=== PATIENT | female | born 1950 | race American Indian/Alaskan Native ===

== ENCOUNTER 2018-03-21 10:14 | Outpatient (CLI) | payer MEDICARE ==
--- NOTE | 2018-03-22 10:07 | Mammography Report ---
BILATERAL DIGITAL DIAGNOSTIC MAMMOGRAM with CAD: 03/21/18 10:14:00 CLINICAL: Recently diagnosed left breast cancer. She had an ultrasound-guided needle biopsy of the left breast at 3 o'clock 10 cm from the nipple on 12/09/17. 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 COMPARISON:No comparison imaging. FINDINGS: The breasts are heterogeneously dense, which may obscure small masses. A left outer biopsy clip correlates with the known cancer. No mass or architectural distortion. Scattered bilateral benign calcifications and bilateral benign vascular calcifications. IMPRESSION: Left breast cancer which is mammographically occult. BI-RADS CATEGORY: 6--Known Cancer ACR BI-RADS MAMMOGRAPHIC CODES: 0 = Needs additional imaging evaluation; 1 = Negative; 2 = Benign; 3 = Probably benign; 4 = Suspicious; 5 = Malignant; 6 = Known biopsy-proven malignancy COMMENT: 1. Dense breast tissue, i.e., adenosis, fibrocystic changes, etc., may obscure an underlying neoplasm. 2. Approximately 10% of cancers are not detected with mammography. 3. A negative mammography report should not delay biopsy if a clinically suspicious mass is present. COMMENT: Patient follow-up letters are generated by our [facility] application.
== END 2018-03-21 10:15 | disposition home or self-care (01) ==
LOC: SPVWC 10:14
PROVIDERS: ATTEND Surgery
DX: C50.412 Malignant neoplasm of upper-outer quadrant of left female breast (principal)
CPT/HCPCS: 77066

== ENCOUNTER 2018-03-28 10:31 | Outpatient (CLI) | payer MEDICARE ==
--- NOTE | 2018-03-28 12:40 | Ultrasound Report ---
LEFT BREAST ULTRASOUND: 03/28/18 10:31:00 CLINICAL: Newly diagnosed left breast cancer. She had an ultrasound guided needle biopsy of the left breast at 3 o'clock 10 cm from the nipple on 12/09/17. Pathology revealed ductal carcinoma in situ, low to intermediate grade. COMPARISON: 03/21/18 mammogram FINDINGS: Ultrasound of the left breast(including all four quadrants and the retroareolar area) was performed and demonstrated a hypoechoic solid slightly irregular mass at 3 o'clock 10 cm from the nipple. It measures 8 x 4 x 6 mm and correlates with the biopsy site. A clip is identified at the margin. No other mass or cyst. Ultrasound of the left axilla demonstrated no suspicious lymph nodes. IMPRESSION: An 8mm mass at the site of the known cancer at 3 o'clock 10 cm from the nipple which may be a post biopsy hematoma. No other mass or suspicious finding of the left breast. BI-RADS 6 -- Known Cancer This
== END 2018-03-28 10:32 | disposition home or self-care (01) ==
LOC: SPVWC 10:31
PROVIDERS: ATTEND Surgery
DX: C50.412 Malignant neoplasm of upper-outer quadrant of left female breast (principal)

== ENCOUNTER 2018-08-30 05:58 | Observation (INO) | payer MEDICARE ==
[~2018-08-30 05:58] MED LIST: ANCEF/STERILE WATER 2 GM/20 ML 2 GM/20 ML SYRINGE IV NR; HEPARIN SUB-Q NR
[2018-08-30] MEDS: LACTATED RINGERS 1,000 ML IV SCH ×2 (06:49→19:50)
[2018-08-30] MEDS ORDERED: METHYLENE BLUE ONE (07:18)
[2018-08-30] MEDS ORDERED: NACL P/F VIAL (10 ML) 10 ML ONE (07:18)
[2018-08-30] MEDS ORDERED: BACITRACIN ONE (07:19)
[2018-08-30] MEDS ORDERED: GENTAMICIN ONE (07:19)
[2018-08-30] MEDS ORDERED: ANCEF ONE (07:20)
[2018-08-30 07:21] LABS: Basophils % (Auto) 0.8 % (0.0-1.8); Eosinophils # (Auto) 0.2 K/mm3 (0.0-0.4); Eosinophils % (Auto) 4.6 % (0.0-4.3); Hematocrit 31.5 % (30.3-42.9); Hemoglobin 10.5 gm/dl (10.1-14.3); Lymphocytes # (Auto) 1.3 K/mm3 (1.2-5.4); Mean Corpuscular HGB Conc 33 % (30-34); Mean Corpuscular Volume 92 fl (79-97); Monocytes # (Auto) 0.5 K/mm3 (0.0-0.8); Monocytes % (Auto) 12.4 % (0.0-7.3); Platelet Count 184 K/mm3 (140-440); Red Blood Count 3.41 M/mm3 (3.65-5.03); Red Cell Distribution Width 15.7 % (13.2-15.2)
--- NOTE | 2018-08-30 07:36 | Anesthesia Consultation ---
Anesthesia Consult and Med Hx Date of service: 08/30/18 - Airway Anesthetic Teeth Evaluation: Good ROM Head & Neck: Adequate Mental/Hyoid Distance: Adequate Mallampati Class: Class IV Intubation Access Assessment: Possibly Difficult - Pre-Operative Health Status ASA Pre-Surgery Classification: ASA3 Proposed Anesthetic Plan: General Nerve Block: PEC - Pulmonary Hx Smoking: No Hx Asthma: No Hx Respiratory Symptoms: Yes (chronic BRISCOE; pulm HTN) Hx Sleep Apnea: No - Cardiovascular System Hx Hypertension: Yes (did not take antihypertensives today) Hx Coronary Artery Disease: Yes (NST 05/2018) Hx Heart Attack/AMI: Yes (2013; ischemic cardiomyopathy EF 35%) Hx Percutaneous Transluminal Coronary Angioplasty (PTCA): Yes (x2 2013) Hx Cardia Arrhythmia: Yes (p-Afib mentioned in previous cardiac records; patient denies) Hx Pacemaker: No Hx Valvular Heart Disease: Yes (mild /AR, moderate to severe MR/TR) Hx Heart Murmur: Yes - Central Nervous System Hx Seizures: No CVA: No Hx Psychiatric Problems: No - Gastrointestinal Hx Gastroesophageal Reflux Disease: Yes (well controlled) - Endocrine Hx Renal Disease: Yes (CKD stage 4) Hx Liver Disease: No Hx Insulin Dependent Diabetes: No Hx Non-Insulin Dependent Diabetes: No Hx Thyroid Disease: No - Hematic Hx Anemia: Yes - Other Systems Hx Alcohol Use: Yes (OCCA) Hx Substance Use: No Hx Cancer: Yes (Breast Ca) Hx Obesity: No
[2018-08-30] MEDS ORDERED: SUBLIMAZE IV PRN (07:37)
[2018-08-30] MEDS ORDERED: SUBLIMAZE IV NR (07:37)
[2018-08-30] MEDS ORDERED: ZOFRAN IV PRN ×2 (07:37→13:23)
--- NOTE | 2018-08-30 07:37 | Anesthesia Day of Surgery ---
Anesthesia Day of Surgery - Day of Surgery Patient Examined: Yes Patient H&P Reviewed: Yes Patient is NPO: Yes Beta Blockers: Yes Cardiac Clearance: Yes
[2018-08-30 07:40] LABS: Albumin 4.1 g/dL (3.9-5); Calcium 9.6 mg/dL (8.4-10.2)
[2018-08-30] MEDS ORDERED: BETAPACE PO NR (07:40)
[2018-08-30] MEDS ORDERED: PROTONIX PO NR (07:41)
[2018-08-30] MEDS ORDERED: COREG PO NR (07:43)
[2018-08-30] MEDS ORDERED: APRESOLINE PO NR (07:44)
[2018-08-30] MEDS ORDERED: IMDUR PO NR (07:45)
[2018-08-30] MEDS ORDERED: NACL 0.9% 1000 ML 1,000 ML ONE (07:47)
[2018-08-30] MEDS ORDERED: ROBINUL ONE (08:00)
[2018-08-30] MEDS ORDERED: VERSED IV NR (08:00)
[2018-08-30] MEDS ORDERED: BLOXIVERZ ONE (08:00)
[2018-08-30] MEDS ORDERED: NEO SYNEPHRINE/NS Syringe(OR USE) IV ONE (08:00)
[2018-08-30] MEDS ORDERED: QUELICIN ONE (08:00)
[2018-08-30] MEDS ORDERED: XYLOCAINE 1% 20 mL ONE ×2 (08:11→08:17)
[2018-08-30] MEDS ORDERED: MARCAINE 0.25% INFILTRATI ONE (08:11)
[2018-08-30] MEDS ORDERED: MARCAINE-EPI 0.5%-1:200,000 INFILTRATI ONE (08:16)
[2018-08-30] MEDS ORDERED: ZOFRAN ONE (08:18)
[2018-08-30] MEDS ORDERED: DECADRON ONE (08:18)
[2018-08-30] MEDS ORDERED: DILAUDID ONE (08:18)
[2018-08-30] MEDS ORDERED: ZEMURON IV ONE (08:18)
[2018-08-30] MEDS ORDERED: TORADOL ONE (08:18)
[2018-08-30] MEDS ORDERED: XYLOCAINE MPF 2% ONE (08:18)
[2018-08-30] MEDS ORDERED: DIPRIVAN 10 MG/ML IV ONE (08:18)
[2018-08-30] MEDS ORDERED: XYLOCAINE TOPICAL 2% 5ML ONE (08:36)
[2018-08-30] MEDS ORDERED: ANCEF IR ONE (08:51)
[2018-08-30] MEDS ORDERED: METHYLENE BLUE IRRIGATION ONE (08:51)
[2018-08-30] MEDS ORDERED: NACL 0.9% 1000 ML IR ONE (08:51)
[2018-08-30] MEDS ORDERED: GENTAMICIN IV ONE (08:51)
[2018-08-30] MEDS ORDERED: WATER FOR IRRIG STERILE IR ONE ×2 (08:51)
[2018-08-30] MEDS ORDERED: BACITRACIN IR ONE (08:51)
[2018-08-30] MEDS ORDERED: NACL 0.9% IR ONE (08:51)
[2018-08-30 11:16] LABS: Hematocrit 28.8 % (30.3-42.9)
--- NOTE | 2018-08-30 11:27 | Operative Report ---
Operative Report Operative Report: Operative Report: Date of Service: August 30, 2018 Preoperative diagnosis: Left breast cancer of the lower outer quadrant Postoperative diagnosis: Same Procedure: Left total mastectomy Surgeon: Aminah Henao M.D. Anesthesia: Gen. Findings: Left seroma cavity and scar from recent surgery noted of the lower outer quadrant Complications: None Drains: per Plastic Surgery Estimated blood loss: 400 cc Disposition: Plastic Surgery for placement of tissue guitar technician Indications for operative procedure: This is a 68-year-old lady with newly diagnosed left breast cancer ILCA of the lower outer quadrant, [id number] ER/OK positive. In April 2018 patient underwent a left partial mastectomy with sentinel node biopsy. Final pathology with findings of sentinel lymph nodes negative for malignancy, left partial mastectomy ILCA [id number] ER/OK positive and extensive DCIS with positive margins to DCIS. Recommendations were to proceed with a margin revision that was performed in July 2018 with final pathology of persistent positive margins. Recommendations are to proceed with a left total mastectomy given additional disease present from margin revision with positive margins for extensive DCIS. Patient agrees and wished to proceed with immediate plastic surgery with tissue guitar technician placement. Patient was given instructions to stop taking aspirin 7 days prior to surgery and her last dosage was yesterday. I explained the increase of bleeding during surgery and patient understood. Procedure in detail: Anesthesia placed left pectoral muscle block prior to going to the operating room. The patient was taken to the operating room and was pl aced supine. Gen. anesthesia was administered. Bilateral breasts and axillas were prepped and draped in the normal sterile operative fashion. Timeout was performed. Typical mastectomy incision marking was made, left mastectomy including prior incision located laterally. Attention was taken towards the left breast. A skin incision was made with a 10 blade knife and dissection taken down to the subcutaneous tissues. First began raising of the superior flap to the level of the clavicle superiorly and posteriorly to the pectoralis muscle. Followed by raising of the medial flap to the level of the sternum and posteriorly to the pectoralis muscle. Followed by raising of the lateral flap to the level of the latissimus dorsi muscle and taken down posteriorly. Then proceeded with raising of the inferior flap to the level of the inframammary fold taken posterior to the pectoralis muscle. Seroma cavity and scar tissue was noted from recent surgery of the lower outer quadrant. The mastectomy/breast was removed from the pectoralis muscle without incident. Significant bleeding was noted during surgery that was controlled using Bovie Cautery, patient remained hemodynmically stable and H/H obtained. The specimen was appropriately marked and sent to pathology. Hemostasis was obtained using Bovie Cautery. The chest wall was irrigated and suctioned. Hemostasis was noted. Plastic surgery then proceeded with placement of tissue guitar technician. Patient tolerated surgery well.
[2018-08-30] MEDS ORDERED: TYLENOL PO PRN (13:23)
[2018-08-30] MEDS ORDERED: SODIUM CHLORIDE FLUSH SYRINGE 10 ML IV PRN (13:23)
[2018-08-30] MEDS ORDERED: PERCOCET 5/325 PO PRN (13:23)
[2018-08-30] MEDS ORDERED: BENADRYL PO PRN (13:23)
[2018-08-30] MEDS ORDERED: REGLAN IV PRN (13:23)
[2018-08-30] MEDS ORDERED: DILAUDID PO PRN (13:23)
--- NOTE | 2018-08-30 13:23 | Operative Report ---
Operative Report Operative Report: Plastic Surgery Operative Note Surgeon: Lidia Marx MD Preoperative Diagnosis: Acquired absence of the left breast; Malignant neoplasm of the left breast Postoperative Diagnosis: Same Procedure: Left breast reconstruction with tissue fancy needleworker placement and FlexHD acellular dermal matrix. Commodity Director: LIO Vaughn Anesthesia: General EBL: 100cc Indications: This patient is a 68 year old AAF who is scheduled for a left mastectomy and desires reconstruction. After review of her options we d etermined that a tissue fancy needleworker placement with FlexHD dermal scaffold was her best option. We discussed her options including autologous tissue transfer and she was interested in the least complex reconstructive route possible. So we planned for tissue fancy needleworker placement with the use of acellular dermal matrix. The benefits as well as the risks of the procedure were discussed with the patient, including but not limited to infection, bleeding, hematoma, seroma, mastectomy flap necrosis, wound dehiscence, implant rupture, need for further surgery including planned stages and additional reconstruction. The patient understands and accepts these risks and desires to proceed with surgery. Procedure: After review of pertinent history and physical exam findings the patient was brought into the operating room and placed supine on the OR table. After induction of adequate general anesthesia the entire chest was prepped and draped in the usual sterile surgical fashion. To begin, Dr. Aminah Henao performed the left mastectomy and this procedure is dictated under a separate operative note. When this was completed, the breast reconstruction was started on the left breast. Using electrocautery we dissected a submuscular pocket behind pectoralis muscle to accommodate the tissue fancy needleworker. The pocket was thoroughly irrigated with triple antibiotic solution and we began creating the inframammary border using Flex HD perforated contoured, a total size of [id number], SN [id number]. The inferior aspect of the Flex HD was secured to the chest fascia using 2-0 PDS suture. This was followed by placement of the tissue fancy needleworker, [place] Siltex 500cc (SN [id number]), in the submuscular pocket. Following this inferior border of the pectoralis fascia was secured to the superior border of the FlexHD also using 2-0 PDS suture. A 19 Lao drain was placed and secured using 2-0 Nylon suture. We then began a 3-layered closure using 3-0 Monoderm Quill [id number] suture. This was followed by Dermabond glue and then Telfa with tegaderm followed by bra binder. Patient was then awakened from general anesthesia and transferred to the recovery room instable condition.
[2018-08-30] MEDS ORDERED: ROBAXIN IV STA (13:32)
[2018-08-30] MEDS ORDERED: LACTATED RINGERS 1,000 ML IV SCH (14:00)
[2018-08-30] MEDS ORDERED: NACL 0.9% 500 ML 500 ML IV NR (14:02)
[2018-08-30 14:48] LABS: Hematocrit 27.3 % (30.3-42.9); Hemoglobin 9.1 gm/dl (10.1-14.3); Mean Corpuscular HGB Conc 33 % (30-34); Mean Corpuscular Volume 94 fl (79-97); Platelet Count 167 K/mm3 (140-440); Red Blood Count 2.92 M/mm3 (3.65-5.03); Red Cell Distribution Width 15.8 % (13.2-15.2)
[2018-08-30] MEDS: ROBAXIN 1,000 MG in NACL 0.9% 250ML 250 ML IV SCH ×2 (15:15→23:24)
--- NOTE | 2018-08-30 16:32 | Post Anesthesia Evaluation ---
- Post Anesthesia Evaluation Patient Participated: Yes Airway Patent: Yes Stable Respiratory Function: Yes Nausea/Vomiting: No Temp > 96.8F: Yes Pain Manageable: Yes Adequeate Hydration: Yes Anesthesia Complications: No Block Receding Appropriately: Yes Patient on Ventilator: No
[2018-08-30] MEDS ORDERED: BENADRYL ONE (16:52)
[2018-08-30] MEDS ORDERED: BENADRYL IV ONE (16:55)
[2018-08-30] MEDS: MORPHINE IV PRN ×2 (18:30→23:21)
[2018-08-30] MEDS: ANCEF/NS 1 GM/50 ML 1 GM/50 ML BAG IV SCH (19:00)
[2018-08-30] MEDS: COLACE PO SCH (23:22)
[2018-08-31] MEDS: ANCEF/NS 1 GM/50 ML 1 GM/50 ML BAG IV SCH ×3 (03:26→15:35)
[2018-08-31] MEDS: MORPHINE IV PRN ×2 (03:27→08:14)
[2018-08-31 06:18] LABS: Hematocrit 21.5 % (30.3-42.9); Mean Corpuscular HGB Conc 33 % (30-34); Mean Corpuscular Volume 94 fl (79-97); Platelet Count 145 K/mm3 (140-440); Red Blood Count 2.28 M/mm3 (3.65-5.03); Red Cell Distribution Width 15.8 % (13.2-15.2)
[2018-08-31] MEDS: ROBAXIN 1,000 MG in NACL 0.9% 250ML 250 ML IV SCH ×3 (08:07→23:23)
[2018-08-31] MEDS ORDERED: NACL 0.9% 500 ML 500 ML IV NR (09:30)
[2018-08-31] MEDS ORDERED: DILAUDID IV STA (09:36)
[2018-08-31] MEDS ORDERED: DILAUDID IM PRN (09:38)
--- NOTE | 2018-08-31 09:46 | Progress Note ---
Subjective Date of service: 08/31/18 Interval history: Plastic Surgery Progress Note Patient admitted to the floor last night, reports poorly controlled pain and no appetite, but denies nausea or vomiting. No cp, sob, dizziness. She has been OOB to the bathroom with spontaneous voiding. Exam AFVSS MADI drain functional, serosanguinous output noted overnight and at present 25cc in bulb (emptied) Mastectomy flaps viable, dressings clean and dry/intact. Soft tissue edema superiorly and laterally without ecchymosis, nontender. A/P: POD #1 s/p left mastectomy with immediate tissue operations/dispatch/flex HD reconstruction . Post operatively aspirin effect is still evident. Hgb/Hct 7.1/21 but patient asymptomatic. MADI output slowing down but still active. --Order stat transfusion of PRBC x 1 unit, post transfusion CBC --Monitor MADI outputs and vitals for sx's of anemia --Change diet to Renal diet --Home medications --Adjust pain meds to Dilaudid IV stat and prn severe pain, d/c Morphine IV, continue to try to transition to PO's as tolerated. --Continue Robaxin IV. No role for Toradol in light of incr. bleeding risk --OOB to chair, Incentive spirometry --Will f/u this afternoon Objective - Constitutional Vitals: Vital Signs - 12hr 08/30/18 08/31/18 08/31/18 23:21 01:52 03:27 Temperature 98.2 F Pulse Rate 65 Respiratory 18 16 18 Rate Blood Pressure 115/58 Blood Pressure [Left] O2 Sat by Pulse 95 Oximetry 08/31/18 08/31/18 06:47 07:53 Temperature 97.6 F 97.3 F L Pulse Rate 71 75 Respiratory 16 18 Rate Blood Pressure 129/53 Blood Pressure 140/68 [Left] O2 Sat by Pulse 97 96 Oximetry - Labs CBC & Chem 7: 08/31/18 05:43 08/30/18 07:00 Labs: Abnormal lab results 08/30/18 08/30/18 08/30/18 Range/Units 10:55 10:55 14:28 WBC 3.7 L (4.5-11.0) K/mm3 RBC 2.92 L (3.65-5.03) M/mm3 Hgb 9.0 L 9.1 L (10.1-14.3) gm/dl Hct 28.8 L 27.3 L (30.3-42.9) % RDW 15.8 H (13.2-15.2) % Crossmatch See Detail 08/30/18 08/31/18 Range/Units 14:58 05:43 WBC (4.5-11.0) K/mm3 RBC 2.28 L (3.65-5.03) M/mm3 Hgb 7.0 L (10.1-14.3) gm/dl Hct 21.5 L (30.3-42.9) % RDW 15.8 H (13.2-15.2) % Crossmatch See Detail Medications & Allergies - Medications Allergies/Adverse Reactions: Allergies Lzctgev-Vjq-Cvi Reductase Inhibitor Allergy (Verified 08/30/18 07:42) Unknown evolocumab [From Repatha Pushtronex] Adverse Reaction (Verified 08/30/18 07:42) BAD BACK PAIN Home Medications: Home Medications Medication Instructions Recorded Confirmed Last Taken Type Aspirin [Adult Aspirin Regimen] 81 mg PO DAILY 04/12/18 08/23/18 08/29/18 History Benazepril HCl 40 mg PO DAILY 04/12/18 08/23/18 08/29/18 History Carvedilol [Coreg] 6.25 mg PO BID 04/12/18 08/30/18 08/29/18 19:00 History Levocetirizine Dihydrochloride 5 mg PO DAILY 04/12/18 08/23/18 08/29/18 History Omeprazole 40 mg PO DAILY PRN 04/12/18 08/23/18 08/29/18 History Sotalol [Betapace] 40 mg PO BID 04/12/18 08/30/18 08/29/18 19:00 History Ergocalciferol [Vitamin D2] 1 cap PO QWEEK 07/11/18 08/23/18 08/29/18 History Fluticasone [Flonase] 1 spray NS QDAY 07/11/18 08/23/18 08/29/18 History Furosemide [Lasix] 20 mg PO Q48H 07/11/18 08/23/18 08/29/18 History Sodium Bicarbonate 2 tab PO BID 07/11/18 08/23/18 08/29/18 History HYDROcodone/APAP 5-325 [[place] 1 each PO Q6HR PRN #20 tablet 07/12/18 08/23/18 08/29/18 Rx 5/325] ISOSORBIDE MONOnitrate [Imdur ER] 30 mg PO DAILY 08/23/18 08/23/18 08/29/18 History hydrALAZINE [Apresoline] 25 mg PO BID 08/23/18 08/23/18 08/29/18 History Active Medications: Generic Name Dose Route Start Last Admin Trade Name Freq PRN Reason Stop Dose Admin Acetaminophen 650 mg 08/30/18 13:23 Tylenol PO Q6H PRN Pain MILD(1-3)/Fever >100.5/HOU Diphenhydramine HCl 25 mg 08/30/18 13:23 Benadryl PO Q8H PRN Itching Docusate Sodium 100 mg 08/30/18 22:00 08/30/18 23:22 Colace PO 100 mg BID RENE Administration Ephedrine Sulfate 10 mg 08/30/18 14:10 08/30/18 14:03 Ephedrine Sulfate IV 10 mg Q5M PRN Administration Blood Pressure Hydromorphone HCl 2 mg 08/30/18 13:23 Dilaudid PO Q6H PRN Pain , Severe (7-10) Hydromorphone HCl 0.5 mg 08/31/18 09:36 Dilaudid IV 08/31/18 09:37 Q3H STA Lactated Ringer's 1,000 mls @ 100 mls/hr 08/30/18 07:00 08/30/18 19:50 Lactated Ringers IV 100 mls/hr DIRECT RENE Administration Lactated Ringer's 1,000 mls @ 125 mls/hr 08/30/18 14:00 Lactated Ringers IV DIRECT RENE Cefazolin Sodium 1 gm in 50 mls @ 100 mls/hr 08/30/18 15:00 08/31/18 08:08 Ancef/Ns 1 Gm/50 Ml IV Not Given Q8HR [facility] Protocol Methocarbamol 1,000 mg/ Sodium 260 mls @ 250 mls/hr 08/30/18 14:00 08/31/18 08:07 Chloride IV Not Given Q8HR [facility] Sodium Chloride 500 mls @ 0 mls/hr 08/31/18 09:30 Nacl 0.9% 500 Ml IV 08/31/18 17:00 ONCE NR As Directed Metoclopramide HCl 10 mg 08/30/18 13:23 Reglan IV Q6H PRN Nausea And Vomiting and NPO Morphine Sulfate 2 mg 08/30/18 13:30 08/31/18 08:14 Morphine IV 2 mg Q3H PRN Administration Pain, Moderate (4-6) Ondansetron HCl 4 mg 08/30/18 07:37 Zofran IV ONCE PRN Nausea And Vomiting Ondansetron HCl 4 mg 08/30/18 13:23 Zofran IV Q8H PRN N/V unrelieved by Hermilolan Oxycodone/Acetaminophen 1 tab 08/30/18 13:23 Percocet 5/325 PO Q6H PRN Pain, Moderate (4-6) Sodium Chloride 10 ml 08/30/18 13:23 Sodium Chloride Flush Syringe 10 Ml IV PRN PRN LINE FLUSH
[2018-08-31] MEDS: COLACE PO SCH ×2 (10:06→22:52)
[2018-08-31 11:22] LABS: Hematocrit 20.6 % (30.3-42.9); Hemoglobin 6.8 gm/dl (10.1-14.3)
[2018-08-31] MEDS: DILAUDID IV PRN ×2 (13:52→18:45)
--- NOTE | 2018-08-31 17:44 | Progress Note ---
Subjective Date of service: 08/31/18 Interval history: Plastic Surgery Progress Patient feeling better as compared to this morning, pain is under better control. She ate more as well and is sitting up in bed. Denies f /c/cp/sob/dizziness. Transfusion given earlier 1 unit PRBC Exam: Drain intact, serosanguinous output slowing from overnight Left chest mastectomy flaps viable, dressings c/d/i, no hematoma or seroma palpable. Plan: Follow up with post transfusion CBC, transfuse additional units if warranted. OOB to chair with assistance. Objective - Constitutional Vitals: Vital Signs - 12hr 08/31/18 08/31/18 08/31/18 06:47 07:53 12:05 Temperature 97.6 F 97.3 F L 97.5 F L Pulse Rate 71 75 80 Respiratory 16 18 20 Rate Blood Pressure 129/53 124/74 Blood Pressure 140/68 [Left] O2 Sat by Pulse 97 96 99 Oximetry 08/31/18 08/31/18 08/31/18 12:13 12:28 15:32 Temperature 97.5 F L 97.5 F L 97.1 F L Pulse Rate 84 80 79 Respiratory 19 19 20 Rate Blood Pressure 136/65 140/64 127/63 Blood Pressure [Left] O2 Sat by Pulse 100 100 100 Oximetry - Labs CBC & Chem 7: 08/31/18 10:52 08/30/18 07:00 Labs: Abnormal lab results 08/30/18 08/31/18 08/31/18 Range/Units 14:58 05:43 10:52 RBC 2.28 L (3.65-5.03) M/mm3 Hgb 7.0 L 6.8 L (10.1-14.3) gm/dl Hct 21.5 L 20.6 L (30.3-42.9) % RDW 15.8 H (13.2-15.2) % Crossmatch See Detail Medications & Allergies - Medications Allergies/Adverse Reactions: Allergies Krrwykm-Hnx-Vlu Reductase Inhibitor Allergy (Verified 08/30/18 07:42) Unknown evolocumab [From Repatha Pushtronex] Adverse Reaction (Verified 08/30/18 07:42) BAD BACK PAIN Home Medications: Home Medications Medication Instructions Recorded Confirmed Last Taken Type Aspirin [Adult Aspirin Regimen] 81 mg PO DAILY 04/12/18 08/23/18 08/29/18 History Benazepril HCl 40 mg PO DAILY 04/12/18 08/23/18 08/29/18 History Carvedilol [Coreg] 6.25 mg PO BID 04/12/18 08/30/18 08/29/18 19:00 History Levocetirizine Dihydrochloride 5 mg PO DAILY 04/12/18 08/23/18 08/29/18 History Omeprazole 40 mg PO DAILY PRN 04/12/18 08/23/18 08/29/18 History Sotalol [Betapace] 40 mg PO BID 04/12/18 08/30/18 08/29/18 19:00 History Ergocalciferol [Vitamin D2] 1 cap PO QWEEK 07/11/18 08/23/18 08/29/18 History Fluticasone [Flonase] 1 spray NS QDAY 07/11/18 08/23/18 08/29/18 History Furosemide [Lasix] 20 mg PO Q48H 07/11/18 08/23/18 08/29/18 History Sodium Bicarbonate 2 tab PO BID 07/11/18 08/23/18 08/29/18 History HYDROcodone/APAP 5-325 [[place] 1 each PO Q6HR PRN #20 tablet 07/12/18 08/23/18 08/29/18 Rx 5/325] ISOSORBIDE MONOnitrate [Imdur ER] 30 mg PO DAILY 08/23/18 08/23/18 08/29/18 History hydrALAZINE [Apresoline] 25 mg PO BID 08/23/18 08/23/18 08/29/18 History Active Medications: Generic Name Dose Route Start Last Admin Trade Name Freq PRN Reason Stop Dose Admin Acetaminophen 650 mg 08/30/18 13:23 Tylenol PO Q6H PRN Pain MILD(1-3)/Fever >100.5/HOU Diphenhydramine HCl 25 mg 08/30/18 13:23 Benadryl PO Q8H PRN Itching Docusate Sodium 100 mg 08/30/18 22:00 08/31/18 10:06 Colace PO 100 mg BID RENE Administration Ephedrine Sulfate 10 mg 08/30/18 14:10 08/30/18 14:03 Ephedrine Sulfate IV 10 mg Q5M PRN Administration Blood Pressure Hydromorphone HCl 2 mg 08/30/18 13:23 Dilaudid PO Q6H PRN Pain , Severe (7-10) Hydromorphone HCl 0.5 mg 08/31/18 10:00 08/31/18 13:52 Dilaudid IV 0.5 mg Q4H PRN Administration Pain , Severe (7-10) Lactated Ringer's 1,000 mls @ 125 mls/hr 08/30/18 14:00 Lactated Ringers IV DIRECT RENE Cefazolin Sodium 1 gm in 50 mls @ 100 mls/hr 08/30/18 15:00 08/31/18 15:35 Ancef/Ns 1 Gm/50 Ml IV 100 mls/hr Q8HR RENE Administration Protocol Methocarbamol 1,000 mg/ Sodium 260 mls @ 250 mls/hr 08/30/18 14:00 08/31/18 15:34 Chloride IV 250 mls/hr Q8HR RENE Administration Metoclopramide HCl 10 mg 08/30/18 13:23 Reglan IV Q6H PRN Nausea And Vomiting and NPO Morphine Sulfate 2 mg 08/30/18 13:30 08/31/18 08:14 Morphine IV 2 mg Q3H PRN Administration Pain, Moderate (4-6) Ondansetron HCl 4 mg 08/30/18 13:23 Zofran IV Q8H PRN N/V unrelieved by Reglan Oxycodone/Acetaminophen 1 tab 08/30/18 13:23 Percocet 5/325 PO Q6H PRN Pain, Moderate (4-6) Sodium Chloride 10 ml 08/30/18 13:23 Sodium Chloride Flush Syringe 10 Ml IV PRN PRN LINE FLUSH
[2018-08-31 18:47] LABS: Hematocrit 26.4 % (30.3-42.9); Hemoglobin 8.6 gm/dl (10.1-14.3)
[2018-09-01] MEDS: ANCEF/NS 1 GM/50 ML 1 GM/50 ML BAG IV SCH ×2 (00:31→09:35)
--- NOTE | 2018-09-01 06:00 | Progress Note ---
Assessment and Plan This is a 68 year old lady POD#2 left total mastectomy with immediate tissue chemical librarian placement. 1. Patient transfused 1 u PRBCs yesterday with appropriate response to .08/30 adn 8.03/30 this morning. Patient hemodynamically stable. Patient understands no further aspirin until instructed, patient did not stop aspirin prior to surgery. Spoke with her cathead worker Dr. Beckman who recommends iron tablets that have already been prescribed. 2. Left chest incision healing. 3. MADI drain education. 4. OOB to hallway today. 5. D/C planning for later today. Subjective Date of service: 09/01/18 Principal diagnosis: Left breast cancer Interval history: POD#2 left total mastectomy with tissue chemical librarian placement. Transfused 1 unit of PRBCs yesterday with appropriate response. Objective - Constitutional Vitals: Vital Signs - 12hr 08/31/18 08/31/18 09/01/18 20:10 20:46 00:04 Temperature 97.9 F 98.2 F Pulse Rate 90 88 Respiratory 20 20 Rate Blood Pressure 133/69 144/73 O2 Sat by Pulse 100 100 100 Oximetry 09/01/18 05:07 Temperature 98.5 F Pulse Rate 89 Respiratory 18 Rate Blood Pressure 147/72 O2 Sat by Pulse 100 Oximetry General appearance: Present: no acute distress - EENT Eyes: PERRL ENT: hearing intact, clear oral mucosa Ears: bilateral: normal - Neck Neck: supple, normal ROM - Respiratory Respiratory effort: normal - Breasts Breasts: other (left chest dressing c/d/i; no hematoma; MADI drain to bulb suction; healing well) - Cardiovascular Rhythm: regular Extremities: no ischemia, pulses intact, pulses symmetrical, No edema, normal temperature, normal color, Full ROM - Gastrointestinal General gastrointestinal: Present: soft, non-tender, non-distended Rectal Exam: deferred - Genitourinary Female genitourinary: deferred - Integumentary Integumentary: clear, warm, dry - Musculoskeletal Musculoskeletal: strength equal bilaterally - Neurologic Neurologic: CNII-XII intact, moves all extremities - Psychiatric Psychiatric: appropriate mood/affect, intact judgment & insight, memory intact, cooperative - Labs CBC & Chem 7: 09/01/18 06:10 08/30/18 07:00 Labs: Abnormal lab results 08/30/18 08/31/18 08/31/18 Range/Units 14:58 05:43 10:52 RBC 2.28 L (3.65-5.03) M/mm3 Hgb 7.0 L 6.8 L (10.1-14.3) gm/dl Hct 21.5 L 20.6 L (30.3-42.9) % RDW 15.8 H (13.2-15.2) % Crossmatch See Detail 08/31/18 Range/Units 18:13 RBC (3.65-5.03) M/mm3 Hgb 8.6 L (10.1-14.3) gm/dl Hct 26.4 L (30.3-42.9) % RDW (13.2-15.2) % Crossmatch Medications & Allergies - Medications Allergies/Adverse Reactions: Allergies Oawpwxv-Giv-Ict Reductase Inhibitor Allergy (Verified 08/30/18 07:42) Unknown evolocumab [From [employer] Pushtronex] Adverse Reaction (Verified 08/30/18 07:42) BAD BACK PAIN Home Medications: Home Medications Medication Instructions Recorded Confirmed Last Taken Type Aspirin [Adult Aspirin Regimen] 81 mg PO DAILY 04/12/18 08/23/18 08/29/18 History Benazepril HCl 40 mg PO DAILY 04/12/18 08/23/18 08/29/18 History Carvedilol [Coreg] 6.25 mg PO BID 04/12/18 08/30/18 08/29/18 19:00 History Levocetirizine Dihydrochloride 5 mg PO DAILY 04/12/18 08/23/18 08/29/18 History Omeprazole 40 mg PO DAILY PRN 04/12/18 08/23/18 08/29/18 History Sotalol [Betapace] 40 mg PO BID 04/12/18 08/30/18 08/29/18 19:00 History Ergocalciferol [Vitamin D2] 1 cap PO QWEEK 07/11/18 08/23/18 08/29/18 History Fluticasone [Flonase] 1 spray NS QDAY 07/11/18 08/23/18 08/29/18 History Furosemide [Lasix] 20 mg PO Q48H 07/11/18 08/23/18 08/29/18 History Sodium Bicarbonate 2 tab PO BID 0508/23/18 08/29/18 History HYDROcodone/APAP 5-325 [[place] 1 each PO Q6HR PRN #20 tablet 07/12/18 08/23/18 08/29/18 Rx 5/325] ISOSORBIDE MONOnitrate [Imdur ER] 30 mg PO DAILY 08/23/18 08/23/18 08/29/18 History hydrALAZINE [Apresoline] 25 mg PO BID 08/23/18 08/23/18 08/29/18 History Active Medications: Generic Name Dose Route Start Last Admin Trade Name Freq PRN Reason Stop Dose Admin Acetaminophen 650 mg 08/30/18 13:23 Tylenol PO Q6H PRN Pain MILD(1-3)/Fever >100.5/HOU Diphenhydramine HCl 25 mg 08/30/18 13:23 Benadryl PO Q8H PRN Itching Docusate Sodium 100 mg 08/30/18 22:00 08/31/18 22:52 Colace PO 100 mg BID RENE Administration Ephedrine Sulfate 10 mg 08/30/18 14:10 08/30/18 14:03 Ephedrine Sulfate IV 10 mg Q5M PRN Administration Blood Pressure Hydromorphone HCl 2 mg 08/30/18 13:23 Dilaudid PO Q6H PRN Pain , Severe (7-10) Hydromorphone HCl 0.5 mg 08/31/18 10:00 08/31/18 18:45 Dilaudid IV 0.5 mg Q4H PRN Administration Pain , Severe (7-10) Lactated Ringer's 1,000 mls @ 125 mls/hr 08/30/18 14:00 Lactated Ringers IV DIRECT RENE Cefazolin Sodium 1 gm in 50 mls @ 100 mls/hr 08/30/18 15:00 09/01/18 00:31 Ancef/Ns 1 Gm/50 Ml IV 100 mls/hr Q8HR RENE Administration Protocol Methocarbamol 1,000 mg/ Sodium 260 mls @ 250 mls/hr 08/30/18 14:00 08/31/18 23:23 Chloride IV 250 mls/hr Q8HR RENE Administration Metoclopramide HCl 10 mg 08/30/18 13:23 Reglan IV Q6H PRN Nausea And Vomiting and NPO Morphine Sulfate 2 mg 08/30/18 13:30 08/31/18 08:14 Morphine IV 2 mg Q3H PRN Administration Pain, Moderate (4-6) Ondansetron HCl 4 mg 08/30/18 13:23 Zofran IV Q8H PRN N/V unrelieved by Debora Oxycodone/Acetaminophen 1 tab 08/30/18 13:23 Percocet 5/325 PO Q6H PRN Pain, Moderate (4-6) Sodium Chloride 10 ml 08/30/18 13:23 Sodium Chloride Flush Syringe 10 Ml IV PRN PRN LINE FLUSH
[2018-09-01] MEDS: DILAUDID IV PRN (06:35)
[2018-09-01 06:46] LABS: Hematocrit 24.3 % (30.3-42.9); Hemoglobin 8.1 gm/dl (10.1-14.3)
[2018-09-01] MEDS: ROBAXIN 1,000 MG in NACL 0.9% 250ML 250 ML IV SCH (07:53)
[2018-09-01] MEDS: COLACE PO SCH (10:52)
[2018-09-01 12:27] VITALS: BP 147/73
== END 2018-09-01 14:00 | disposition home or self-care (01) ==
LOC: OR 05:58 → OB 13:23
PROVIDERS: ADMIT Surgery; ATTEND Plastic Surgery
DX: C50.512 Malignant neoplasm of lower-outer quadrant of left female breast (principal); C50.412 Malignant neoplasm of upper-outer quadrant of left female breast; C50.112 Malignant neoplasm of central portion of left female breast; Z90.12 Acquired absence of left breast and nipple
CPT/HCPCS: 19303; 19357; 36415; 36430; 64450; 80053; 85014; 85018; 85025; 85027; 86850; 86900; 86901; 86920; 88309; 96365; 96366; 96367; 96368; 96372; 96375; 96376; C1789; G0378; J0330; J0690; J1100; J1170; J1200; J1580; J1644; J1885; J2250; J2270; J2370; J2405; J2704; J2710; J2800; J3010; J7030; J7040; J7050; J7120; P9016; Q4128; Q9968; 88307

== ENCOUNTER 2018-09-02 09:19 | Inpatient (IN) | payer MEDICARE ==
--- NOTE | 2018-09-02 09:37 | History and Physical Report ---
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 Patient did not stop her aspirin prior to surgery and significant bleeding was encountered intraoperatively. Patient was transfused 1 unit of PRBCs on 08/31/18 with appropriate response. Patient being readmitted for concerns of high MADI drain output-spoke with family this morning. Patient has remained hemodynamically stable. 200cc MADI drain output in 24 hours. Past History Past Medical History: CAD Past Surgical History: Other (left partial mastectomy 04/2018; left tota mastectomy 08/2018) Social history: single Family history: no significant family history Medications and Allergies Allergies Allergy/AdvReac Type Severity Reaction Status Date / Time Wlvgvxj-Ixo-Uxa Reductase Allergy Unknown Verified 08/30/18 07:42 Inhibitor evolocumab AdvReac BAD BACK Verified 08/30/18 07:42 [From [employer] Pushtronex] PAIN Home Medications Medication Instructions Recorded Confirmed Last Taken Type Aspirin [Adult Aspirin Regimen] 81 mg PO DAILY 04/12/18 08/23/18 08/29/18 History Benazepril HCl 40 mg PO DAILY 04/12/18 08/23/18 08/29/18 History Levocetirizine Dihydrochloride 5 mg PO DAILY 04/12/18 08/23/18 08/29/18 History Omeprazole 40 mg PO DAILY PRN 04/12/18 08/23/18 08/29/18 History RX: Carvedilol [Coreg] 6.25 mg PO BID 04/12/18 08/30/18 08/29/18 19:00 History Sotalol [Betapace] 40 mg PO BID 04/12/18 08/30/18 08/29/18 19:00 History Ergocalciferol [Vitamin D2] 1 cap PO QWEEK 07/11/18 08/23/18 08/29/18 History Fluticasone [Flonase] 1 spray NS QDAY 07/11/18 08/23/18 08/29/18 History Furosemide [Lasix] 20 mg PO Q48H 07/11/18 08/23/18 08/29/18 History RX: Sodium Bicarbonate 2 tab PO BID 07/11/18 08/23/18 08/29/18 History HYDROcodone/APAP 5-325 [[place] 1 each PO Q6HR PRN #20 tablet 07/12/18 08/23/18 08/29/18 Rx 5/325] ISOSORBIDE MONOnitrate [Imdur ER] 30 mg PO DAILY 08/23/18 08/23/18 08/29/18 History hydrALAZINE [Apresoline] 25 mg PO BID 08/23/18 08/23/18 08/29/18 History Review of Systems All systems: negative Constitutional: fatigue, weakness Breasts: other (left MADI drain in place) Gastrointestinal: nausea, vomiting Exam - Physical Exam Narrative exam: Left chest-left incision intact, along superior aspect of cover assembler probable hematoma with echhymosis present-concerning for hematoma with new findings; MADI drain output with bloody output - Constitutional General appearance: Present: no acute distress - EENT Eyes: Present: PERRL, EOM intact ENT: hearing intact, clear oral mucosa - Neck Neck: Present: supple, normal ROM - Respiratory Respiratory effort: normal - Cardiovascular Rhythm: regular - Extremities Extremities: no ischemia, pulses intact, No edema, normal temperature, normal color, Full ROM Peripheral Pulses: within normal limits - Abdominal General gastrointestinal: Present: soft, non-tender, non-distended Female genitourinary: Present: deferred - Rectal Rectal Exam: deferred - Integumentary Integumentary: Present: clear, warm, dry - Musculoskeletal Musculoskeletal: strength equal bilaterally - Psychiatric Psychiatric: appropriate mood/affect, intact judgment & insight, memory intact, cooperative - Neurologic Neurologic: CNII-XII intact, moves all extremities, gait normal Assessment and Plan This is a 68 year old lady with Stage I left breast cancer POD#3 left total mastectomy with immediate tissue cover assembler placement. Patient readmitted for concerns of postoperative bleeding. 1. Physical exam today with new left superior chest ecchymosis and probable hematoma of upper chest-patient with tissue cover assembler in place and around 200-300 cc of saline injected intraoperative. Will take patient to the OR for evaluation of bleeding and possible evacuation of hematoma. Patient did not stop her aspirin prior to surgery and she understood she was an increase bleeding risk. When closed by Plastic surgery, hemastasis was noted. MDAI drain output 200 cc in the past 24 hours and bloody output currently in MADI drain today. 2. Will obtain CBC, Chem 7 and type and cross for PRBCs if needed pending lab results. 3. Patient consented for surgery for left mastectomy re-exploration with risks, benefits and indications discussed in detail-infection, bleeding, pain, flap necrosis, and possibility of additional surgical procedures.
[2018-09-02] MEDS ORDERED: ZOFRAN IV PRN (09:40)
[2018-09-02] MEDS ORDERED: SODIUM CHLORIDE FLUSH SYRINGE 10 ML IV PRN (09:40)
[2018-09-02] MEDS ORDERED: REGLAN PO PRN (09:40)
[2018-09-02] MEDS ORDERED: DILAUDID PO PRN ×2 (09:40→14:42)
[2018-09-02] MEDS ORDERED: TYLENOL PO PRN (09:40)
[2018-09-02] MEDS ORDERED: BENADRYL PO PRN (09:40)
[2018-09-02] MEDS ORDERED: LACTATED RINGERS 1,000 ML IV SCH ×2 (10:00→14:00)
[2018-09-02] MEDS ORDERED: LACTATED RINGERS 1,000 ML ONE (12:35)
[2018-09-02] MEDS: MORPHINE IV PRN (12:55)
[2018-09-02 13:27] LABS: Hematocrit 23.8 % (30.3-42.9); Mean Corpuscular HGB Conc 34 % (30-34); Mean Corpuscular Volume 92 fl (79-97); Platelet Count 163 K/mm3 (140-440); Red Blood Count 2.58 M/mm3 (3.65-5.03); Red Cell Distribution Width 16.5 % (13.2-15.2)
[2018-09-02] MEDS ORDERED: ZOFRAN IM ONE (14:00)
[2018-09-02] MEDS ORDERED: APRESOLINE IV ONE (14:15)
[2018-09-02] MEDS ORDERED: NON-FORMULARY (Omeprazole [Omeprazole] 40 MG) PO PRN (14:44)
--- NOTE | 2018-09-02 14:54 | Event Note ---
Date: 09/02/18 Patient not taken to OR given no change in H/H and patient hemodynamically stable. Patient seen with Dr. Marx, area of supper chest at area of concern is tissue silo filler. Patient's chest was wrapped with DILCIA and chest binder. Will monitor closely.
--- NOTE | 2018-09-02 14:55 | Event Note ---
Date: 09/02/18 Patient re-admitted for concerning drainage from MADI over the last 24 hours (200ml bloody fluid). She denied cp, sob but complained of headache and nausea which was attributed to her high blood pressure. Hydralazine IV given as well as Zofran with appropriate effect. On exam she was found to have left chest upper pole soft tissue edema and increased ecchymosis compared to prior exam. No increased pain, nontender; no fluid wave noted, implant palpable in all areas beneath soft tissue swelling and intact without a discreet fluid collection around it. Inferomedially she has an area of dark ecchymosis ~2x2cm in the mastectomy flap. MADI drain has bloody fluid in the bulb and more serous fluid in the tubing. Stat CBC sent to check her hemoglobin levels. Dr. Henao examined the patient with me at bedside and we determined that there might be an active source of bleeding, so she mgiht benefit from going to the OR. However, when h er CBC resulted it was noted that her Hgb (8.0) has remained steady since her post transfusion CBC on , which is inconsistent with ongoing blood loss over the last 48 hours. Therefore, we are cancelling her surgery. Her chest has been wrapped with 6" DILCIA and will remain so until Tuesday. We will keep her admitted, resume home meds, heplock IVF when she is tolerating PO renal diet and follow her drain output closely.
[2018-09-02] MEDS ORDERED: PROTONIX PO SCH (15:00)
[2018-09-02] MEDS: COLACE PO SCH ×2 (15:38→21:46)
[2018-09-02] MEDS: PROTONIX PO SCH (15:38)
[2018-09-02] MEDS ORDERED: NACL 0.9% 500 ML 500 ML IV ONE (20:08)
[2018-09-02] MEDS: COREG PO SCH (21:44)
[2018-09-02] MEDS: BETAPACE PO SCH (21:45)
[2018-09-02] MEDS: APRESOLINE PO SCH (21:46)
[2018-09-02] MEDS: FEOSOL PO SCH (21:46)
[2018-09-02] MEDS ORDERED: COREG PO SCH (22:00)
[2018-09-02] MEDS ORDERED: MIRALAX 3350 PO PRN (22:40)
[2018-09-02] MEDS: ANCEF/NS 1 GM/50 ML 1 GM/50 ML BAG IV SCH (22:50)
[2018-09-03 06:24] LABS: Bilirubin,Urine NEG (Negative); Blood,Urine NEG (Negative); Color,Urine Yellow (Yellow); Mucus,Urine FEW /HPF; Urobilinogen,Urine < 2.0 mg/dL (<2.0)
[2018-09-03] MEDS: ANCEF/NS 1 GM/50 ML 1 GM/50 ML BAG IV SCH ×2 (06:51→17:20)
--- NOTE | 2018-09-03 07:34 | Progress Note ---
Assessment and Plan This is a 68 year old lady with Stage I left breast cancer POD#4 left total mastectomy with immediate tissue sales and in home delivery specialist placement. Patient readmitted for concerns of postoperative bleedin-H/H stable and not taken back to the OR. 1. Febrile overnight to 101 with appropriate response. Cultures pending. 2. Patient hemodynamically stable. MADI draint 80 cc since admission. 3. Left chest with DILCIA bandage and binder in place, chest soft with minimal tenderness. 4. OOB to hallway. 5. Encourage ISS. Subjective Date of service: 09/03/18 Principal diagnosis: Left breast cancer Interval history: This is a 68 year old lady POD#4 left total mastectomy and immediate tissue sales and in home delivery specialist placement. Patient re-admitted yesterday for concerns of postoperative bleeding with H/H remaining stable. Fever of 101 overnight and cultures taken, most probable for atalectasis. Patient hemodynamically stable. Objective - Constitutional Vitals: Vital Signs - 12hr 09/02/09/02/09/03/18 21:15 22:38 02:30 Temperature 101.0 F H 98.4 F 98.7 F Pulse Rate 111 H 91 H 87 Respiratory 18 18 18 Rate Blood Pressure 154/89 124/75 137/78 [Right] O2 Sat by Pulse 100 100 96 Oximetry 09/03/18 06:57 Temperature 99.7 F H Pulse Rate 85 Respiratory 16 Rate Blood Pressure 151/87 [Right] O2 Sat by Pulse 100 Oximetry General appearance: Present: no acute distress - EENT Eyes: PERRL, EOM intact ENT: hearing intact, clear oral mucosa, dentition normal Ears: bilateral: normal - Neck Neck: supple, normal ROM - Respiratory Respiratory effort: normal - Breasts Breasts: other (left DILCIA in place with binder, left chest soft, ecchymosis of upper chest-area soft with with minimal tenderness; MADI drain to bulb suction) - Cardiovascular Rhythm: regular Extremities: no ischemia, pulses symmetrical, No edema, normal temperature, normal color, Full ROM - Gastrointestinal General gastrointestinal: Present: soft, non-tender, non-distended Rectal Exam: deferred - Genitourinary Female genitourinary: deferred - Integumentary Integumentary: clear, warm, dry - Musculoskeletal Musculoskeletal: strength equal bilaterally - Neurologic Neurologic: CNII-XII intact, moves all extremities - Psychiatric Psychiatric: appropriate mood/affect, intact judgment & insight, memory intact, cooperative - Labs CBC & Chem 7: 09/02/18 13:04 09/02/18 13:04 Labs: Abnormal lab results 09/02/18 09/02/18 Range/Units 13:04 13:04 RBC 2.58 L (3.65-5.03) M/mm3 Hgb 8.0 L (10.1-14.3) gm/dl Hct 23.8 L (30.3-42.9) % RDW 16.5 H (13.2-15.2) % Chloride 108.0 H (98-107) mmol/L Carbon Dioxide 20 L (22-30) mmol/L BUN 25 H (7-17) mg/dL Creatinine 1.9 H (0.7-1.2) mg/dL Glucose 143 H (65-100) mg/dL Medications & Allergies - Medications Allergies/Adverse Reactions: Allergies Hngtlmx-Vdd-Wtn Reductase Inhibitor Allergy (Verified 08/30/18 07:42) Unknown evolocumab [From [employer]us[employer]] Adverse Reaction (Verified 08/30/18 07:42) BAD BACK PAIN Home Medications: Home Medications Medication Instructions Recorded Confirmed Last Taken Type Aspirin [Adult Aspirin Regimen] 81 mg PO DAILY 04/12/18 08/23/18 08/29/18 History Benazepril HCl 40 mg PO DAILY 04/12/18 08/23/18 08/29/18 History Carvedilol [Coreg] 6.25 mg PO BID 04/12/18 08/30/18 08/29/18 19:00 History Levocetirizine Dihydrochloride 5 mg PO DAILY 04/12/18 08/23/18 08/29/18 History Omeprazole 40 mg PO DAILY PRN 04/12/18 08/23/18 08/29/18 History Sotalol [Betapace] 40 mg PO BID 04/12/18 08/30/18 08/29/18 19:00 History Ergocalciferol [Vitamin D2] 1 cap PO QWEEK 07/11/18 08/23/18 08/29/18 History Fluticasone [Flonase] 1 spray NS QDAY 07/11/18 08/23/18 08/29/18 History Furosemide [Lasix] 20 mg PO Q48H 07/11/18 08/23/18 08/29/18 History Sodium Bicarbonate 2 tab PO BID 07/11/18 08/23/18 08/29/18 History HYDROcodone/APAP 5-325 [[place] 1 each PO Q6HR PRN #20 tablet 07/12/18 08/23/18 08/29/18 Rx 5/325] ISOSORBIDE MONOnitrate [Imdur ER] 30 mg PO DAILY 08/23/18 08/23/18 08/29/18 History hydrALAZINE [Apresoline] 25 mg PO BID 08/23/18 08/23/18 08/29/18 History Active Medications: Generic Name Dose Route Start Last Admin Trade Name Freq PRN Reason Stop Dose Admin Acetaminophen 650 mg 09/02/18 09:40 09/02/18 21:44 Tylenol PO 650 mg Q6H PRN Administration Pain MILD(1-3)/Fever >100.5/HOU Carvedilol 6.25 mg 09/02/18 22:00 09/02/18 21:44 Coreg PO 6.25 mg BID RENE Administration Diphenhydramine HCl 25 mg 09/02/18 09:40 Benadryl PO Q8H PRN Itching Docusate Sodium 100 mg 09/02/18 10:00 09/02/18 21:46 Colace PO 100 mg BID RENE Administration Ferrous Sulfate 325 mg 09/02/18 22:00 09/02/18 21:46 Feosol PO 325 mg BID RENE Administration Hydralazine HCl 25 mg 09/02/18 22:00 09/02/18 21:46 Apresoline PO 25 mg BID RENE Administration Hydromorphone HCl 2 mg 09/02/18 14:42 Dilaudid PO Q6H PRN Pain , Severe (7-10) Lactated Ringer's 1,000 mls @ 100 mls/hr 09/02/18 14:00 Lactated Ringers IV DIRECT RENE Cefazolin Sodium 1 gm in 50 mls @ 100 mls/hr 09/02/18 22:00 09/03/18 06:51 Ancef/Ns 1 Gm/50 Ml IV 100 mls/hr Q8HR RENE Administration Protocol Isosorbide Mononitrate 30 mg 09/03/18 10:00 Imdur PO DAILY RENE Metoclopramide HCl 10 mg 09/02/18 09:40 Reglan PO Q6H PRN Nausea And Vomiting Morphine Sulfate 2 mg 09/02/18 12:50 09/02/18 12:55 Morphine IV 2 mg Q4H PRN Administration Pain, Moderate (4-6) Ondansetron HCl 4 mg 09/02/18 09:40 09/02/18 13:51 Zofran IV 4 mg Q8H PRN Administration N/V unrelieved by Debora Pantoprazole Sodium 40 mg 09/02/18 16:00 09/02/18 15:38 Protonix PO 40 mg DAILY RENE Administration Polyethylene Glycol 17 gm 09/02/18 22:40 Miralax 3350 PO BID PRN Constipation Sodium Chloride 10 ml 09/02/18 09:40 Sodium Chloride Flush Syringe 10 Ml IV PRN PRN LINE FLUSH Sotalol HCl 40 mg 09/02/18 22:00 09/02/18 21:45 Betapace PO 40 mg BID RENE Administration
[2018-09-03] MEDS: COLACE PO SCH ×2 (09:30→22:36)
[2018-09-03] MEDS: FEOSOL PO SCH ×2 (09:32→22:36)
[2018-09-03] MEDS: BETAPACE PO SCH ×2 (09:32→22:37)
[2018-09-03] MEDS: PROTONIX PO SCH (09:33)
[2018-09-03] MEDS: IMDUR PO SCH (09:34)
[2018-09-03] MEDS: APRESOLINE PO SCH ×2 (09:34→22:36)
[2018-09-03] MEDS: COREG PO SCH ×2 (09:37→22:36)
[2018-09-03] MEDS: MORPHINE IV PRN (09:39)
[2018-09-04] MEDS: ANCEF/NS 1 GM/50 ML 1 GM/50 ML BAG IV SCH (01:59)
[2018-09-04] MEDS: PROTONIX PO SCH (11:55)
[2018-09-04] MEDS: APRESOLINE PO SCH (11:55)
[2018-09-04] MEDS: BETAPACE PO SCH (11:56)
[2018-09-04] MEDS: COREG PO SCH (11:56)
[2018-09-04] MEDS: FEOSOL PO SCH (11:56)
[2018-09-04] MEDS: COLACE PO SCH (11:57)
[2018-09-04] MEDS: IMDUR PO SCH (12:07)
--- NOTE | 2018-09-04 12:33 | Progress Note ---
Subjective Date of service: 09/04/18 Principal diagnosis: Left breast cancer Interval history: Plastic Surgery Progress Note Patient was seen and examined at the bedside. She was noted to be in brighter spirits today and reports no pain, no difficulty eating, and says that she feels better than she did over the weekend. She denies chest pain shortness of breath or dizziness. Exam: AFVSS MADI outputs serosanguinous, decreased outputs appropriate for this stage post op Mastectomy flaps viable, ecchymosis along superior pole and inferomedial pole darkened but evolving. No hematoma or seroma. Dressings c/d/i. Plan: Discharge home today in the care of her daughters. Patient already has prescriptions. Strict monitoring of MADI outputs. F/u in one week in office 09/12/18 at 9:30am Objective - Constitutional Vitals: Vital Signs - 12hr 09/04/18 09/04/18 09/04/18 00:40 05:27 07:24 Temperature 98.3 F 98.5 F 97.6 F Pulse Rate 76 85 Respiratory 20 20 20 Rate Blood Pressure 129/74 137/86 133/73 O2 Sat by Pulse 97 100 Oximetry 09/04/18 12:07 Temperature Pulse Rate 93 H Respiratory Rate Blood Pressure 133/73 O2 Sat by Pulse Oximetry - Labs CBC & Chem 7: 09/02/18 13:04 09/02/18 13:04 Medications & Allergies - Medications Allergies/Adverse Reactions: Allergies Noieorg-Tmt-Lsk Reductase Inhibitor Allergy (Verified 08/30/18 07:42) Unknown evolocumab [From [employer]us[employer]x] Adverse Reaction (Verified 08/30/18 07:42) BAD BACK PAIN Home Medications: Home Medications Medication Instructions Recorded Confirmed Last Taken Type Aspirin [Adult Aspirin Regimen] 81 mg PO DAILY 04/12/18 09/03/18 08/29/18 History Benazepril HCl 40 mg PO DAILY 04/12/18 09/03/18 08/29/18 History Carvedilol [Coreg] 6.25 mg PO BID 04/12/18 09/03/18 08/29/18 19:00 History Levocetirizine Dihydrochloride 5 mg PO DAILY 04/12/18 09/03/18 08/29/18 History Omeprazole 40 mg PO DAILY PRN 04/12/18 09/03/18 08/29/18 History Sotalol [Betapace] 40 mg PO BID 04/12/18 09/03/18 08/29/18 19:00 History Ergocalciferol [Vitamin D2] 1 cap PO QWEEK 07/11/18 09/03/18 08/29/18 History Fluticasone [Flonase] 1 spray NS QDAY 07/11/18 09/03/18 08/29/18 History Furosemide [Lasix] 20 mg PO Q48H 07/11/18 09/03/18 08/29/18 History Sodium Bicarbonate 2 tab PO BID 07/11/18 09/03/18 08/29/18 History HYDROcodone/APAP 5-325 [[place] 1 each PO Q6HR PRN #20 tablet 07/12/18 09/03/18 08/29/18 Rx 5/325] ISOSORBIDE MONOnitrate [Imdur ER] 30 mg PO DAILY 08/23/18 09/03/18 08/29/18 History hydrALAZINE [Apresoline] 25 mg PO BID 08/23/18 09/03/18 08/29/18 History Active Medications: Generic Name Dose Route Start Last Admin Trade Name Freq PRN Reason Stop Dose Admin Acetaminophen 650 mg 09/02/18 09:40 09/02/18 21:44 Tylenol PO 650 mg Q6H PRN Administration Pain MILD(1-3)/Fever >100.5/HOU Carvedilol 6.25 mg 09/02/18 22:00 09/04/18 11:56 Coreg PO 6.25 mg BID RENE Administration Diphenhydramine HCl 25 mg 09/02/18 09:40 Benadryl PO Q8H PRN Itching Docusate Sodium 100 mg 09/02/18 10:00 09/04/18 11:57 Colace PO 100 mg BID RENE Administration Ferrous Sulfate 325 mg 09/02/18 22:00 09/04/18 11:56 Feosol PO 325 mg BID RENE Administration Hydralazine HCl 25 mg 09/02/18 22:00 09/04/18 11:55 Apresoline PO 25 mg BID RENE Administration Hydromorphone HCl 2 mg 09/02/18 14:42 Dilaudid PO Q6H PRN Pain , Severe (7-10) Lactated Ringer's 1,000 mls @ 100 mls/hr 09/02/18 14:00 Lactated Ringers IV DIRECT RENE Cefazolin Sodium 1 gm in 50 mls @ 100 mls/hr 09/02/18 22:00 09/04/18 01:59 Ancef/Ns 1 Gm/50 Ml IV 100 mls/hr Q8HR RENE Administration Protocol Isosorbide Mononitrate 30 mg 09/03/18 10:00 09/04/18 12:07 Imdur PO 30 mg DAILY RENE Administration Metoclopramide HCl 10 mg 09/02/18 09:40 Reglan PO Q6H PRN Nausea And Vomiting Morphine Sulfate 2 mg 09/02/18 12:50 09/03/18 09:39 Morphine IV 2 mg Q4H PRN Administration Pain, Moderate (4-6) Ondansetron HCl 4 mg 09/02/18 09:40 09/02/18 13:51 Zofran IV 4 mg Q8H PRN Administration N/V unrelieved by Reglan Pantoprazole Sodium 40 mg 09/02/18 16:00 09/04/18 11:55 Protonix PO 40 mg DAILY RENE Administration Polyethylene Glycol 17 gm 09/02/18 22:40 Miralax 3350 PO BID PRN Constipation Sodium Chloride 10 ml 09/02/18 09:40 Sodium Chloride Flush Syringe 10 Ml IV PRN PRN LINE FLUSH Sotalol HCl 40 mg 09/02/18 22:00 09/04/18 11:56 Betapace PO 40 mg BID RENE Administration
[2018-09-04 16:24] VITALS: BP 127/71
== END 2018-09-04 17:15 | disposition home or self-care (01) | DRG 908 ==
LOC: OB 12:48
PROVIDERS: ADMIT Surgery; ATTEND Surgery
PROC: 0HHU0NZ Insertion of Tissue Expander into Left Breast, Open Approach (ICD-10-PCS; principal; 2018-08-30)
DX: L76.22 Postprocedural hemorrhage of skin and subcutaneous tissue following other procedure (principal); J98.11 Atelectasis; I25.10 Atherosclerotic heart disease of native coronary artery without angina pectoris; C50.912 Malignant neoplasm of unspecified site of left female breast; Y83.8 Other surgical procedures as the cause of abnormal reaction of the patient, or of later complication, without mention of misadventure at the time of the procedure; Y92.89 Other specified places as the place of occurrence of the external cause; Z79.82 Long term (current) use of aspirin
CPT/HCPCS: 36415; 36430; 64450; 80048; 80053; 81001; 85014; 85018; 85025; 85027; 86850; 86900; 86901; 86920; 87040; 87086; 88307; 88309; 96365; 96366; 96367; 96368; 96372; 96375; 96376; G0378; C1789; J0330; J0360; J0690; J1100; J1170; J1200; J1580; J1644; J1885; J2250; J2270; J2370; J2405; J2704; J2710; J2800; J3010; J7030; J7040; J7050; J7120; P9016; Q4128; Q9968

== ENCOUNTER 2018-09-15 12:46 | Inpatient (IN) | payer MEDICARE ==
--- NOTE | 2018-09-15 13:27 | Event Note ---
ED Screening Note ED Screening Note: pt presents for generalized weakness denies any pain anywhere had left sided mastectomy on august 30 Dr[address] chappell did her surgery no fever PMHx AL, HTN, CKD, breast CA This initial assessment/diagnostic orders/clinical plan/treatment(s) is/are subject to change based on patients health status, clinical progression and re- assessment by fellow clinical providers in the ED. Further treatment and workup at subsequent clinical providers discretion. Patient/guardian urged not to elope from the ED as their condition may be serious if not clinically assessed and managed. Initial orders include: labs, UA, EKG
[2018-09-15 14:09] LABS: Basophils % (Auto) 0.9 % (0.0-1.8); Eosinophils # (Auto) 0.1 K/mm3 (0.0-0.4); Eosinophils % (Auto) 2.6 % (0.0-4.3); Hemoglobin 10.2 gm/dl (10.1-14.3); Lymphocytes # (Auto) 1.1 K/mm3 (1.2-5.4); Lymphocytes % (Auto) 23.1 % (13.4-35.0); Mean Corpuscular HGB Conc 33 % (30-34); Mean Corpuscular Volume 96 fl (79-97); Monocytes # (Auto) 0.4 K/mm3 (0.0-0.8); Monocytes % (Auto) 8.7 % (0.0-7.3); Platelet Count 333 K/mm3 (140-440); Red Blood Count 3.22 M/mm3 (3.65-5.03); Red Cell Distribution Width 18.8 % (13.2-15.2)
[2018-09-15 14:43] LABS: Albumin 3.9 g/dL (3.9-5); Calcium 9.8 mg/dL (8.4-10.2)
[2018-09-15] MEDS ORDERED: ASPIRIN PO ONE (15:19)
[2018-09-15 16:06] LABS: Bilirubin,Urine NEG (Negative); Blood,Urine NEG (Negative); Color,Urine Yellow (Yellow); Mucus,Urine FEW /HPF; Protein,Urine <15 mg/dL mg/dL (Negative); Urobilinogen,Urine < 2.0 mg/dL (<2.0)
[2018-09-15 16:14] LABS: Chol/HDL Ratio 4.71 %
--- NOTE | 2018-09-15 16:46 | Emergency Department Report ---
- General Chief complaint: Weakness Stated complaint: GENERAL WEAKNESS Time Seen by Provider: 09/15/18 16:24 Source: patient, EMS Mode of arrival: Wheelchair Limitations: No Limitations - History of Present Illness Initial comments: Patient is a 68-year-old female presents to mention with hypotension and weakness. The patient states she believes her blood count was low. Patient states she recently had a [facility] Patient states that she is not having any chest pain or surgical site pain or shortness of breath. Patient states her blood pressures below is since a few days after the surgery. Patient states she is feeling weak. Patient states her weakness better with rest and worse with exertion. MD Complaint: generalized weakness, focal weakness, lack of energy -: Sudden Severity: severe Consistency: constant Improves with: rest Worsens with: movement, exertion Context: recent surgery Associated Symptoms: loss of appetite. denies: chest pain, confusion, dark stools, diaphoresis, dysuria, easy bruising, fever/chills, headaches, nausea/vomiting, myalgias, rash, shortness of breath, syncope - Related Data Home Medications Medication Instructions Recorded Confirmed Last Taken Aspirin [Adult Aspirin Regimen] 81 mg PO DAILY 04/12/18 09/03/18 08/29/18 Benazepril HCl 40 mg PO DAILY 04/12/18 09/03/18 08/29/18 Carvedilol [Coreg] 6.25 mg PO BID 04/12/18 09/03/18 08/29/18 19:00 Levocetirizine Dihydrochloride 5 mg PO DAILY 04/12/18 09/03/18 08/29/18 Omeprazole 40 mg PO DAILY PRN 04/12/18 09/03/18 08/29/18 Sotalol [Betapace] 40 mg PO BID 04/12/18 09/03/18 08/29/18 19:00 Ergocalciferol [Vitamin D2] 1 cap PO QWEEK 07/11/18 09/03/18 08/29/18 Fluticasone [Flonase] 1 spray NS QDAY 07/11/18 09/03/18 08/29/18 Furosemide [Lasix] 20 mg PO Q48H 07/11/18 09/03/18 08/29/18 Sodium Bicarbonate 2 tab PO BID 07/11/18 09/03/18 08/29/18 ISOSORBIDE MONOnitrate [Imdur ER] 30 mg PO DAILY 08/23/18 09/03/18 08/29/18 hydrALAZINE [Apresoline] 25 mg PO BID 08/23/18 09/03/18 08/29/18 Previous Rx's Medication Instructions Recorded Last Taken Type HYDROcodone/APAP 5-325 [[place] 1 each PO Q6HR PRN #20 tablet 07/12/18 08/29/18 Rx 5/325] Allergies Allergy/AdvReac Type Severity Reaction Status Date / Time [id number] Reductase Allergy Unknown Verified 09/15/18 13:18 Inhibitor evolocumab AdvReac BAD BACK Verified 09/15/18 13:18 [From Repatha Pushtronex] PAIN ED Review of Systems ROS: Stated complaint: GENERAL WEAKNESS Other details as noted in HPI Constitutional: weakness Eyes: denies: eye pain, eye discharge, vision change ENT: denies: ear pain, throat pain Respiratory: denies: cough, shortness of breath, wheezing Cardiovascular: denies: chest pain, palpitations Endocrine: no symptoms reported Gastrointestinal: denies: abdominal pain, nausea, diarrhea Genitourinary: denies: urgency, dysuria, discharge Musculoskeletal: denies: back pain, joint swelling, arthralgia Skin: denies: rash, lesions Neurological: weakness Psychiatric: denies: anxiety, depression Hematological/Lymphatic: denies: easy bleeding, easy bruising ED Past Medical Hx - Past Medical History Hx Hypertension: Yes (did not take antihypertensives today) Hx Heart Attack/AMI: Yes (2013; ischemic cardiomyopathy EF 35%) Hx GERD: Yes Hx Liver Disease: No Hx Renal Disease: Yes (CKD stage 4) Hx Seizures: No Hx Asthma: No Hx HIV: No - Surgical History Hx Coronary Stent: Yes ((2)) Hx Pacemaker: No Hx Breast Surgery: Yes (L BREAST BS X2 (; 16), mastectomy 2018) - Family History Family history: no significant - Social History Smoking Status: Never Smoker Substance Use Type: None - Medications Home Medications: Home Medications Medication Instructions Recorded Confirmed Last Taken Type Aspirin [Adult Aspirin Regimen] 81 mg PO DAILY 04/12/18 09/03/18 08/29/18 History Benazepril HCl 40 mg PO DAILY 04/12/18 09/03/1808/29/19 History Carvedilol [Coreg] 6.25 mg PO BID 04/12/18 09/03/18 08/29/18 19:00 History Levocetirizine Dihydrochloride 5 mg PO DAILY 04/12/18 09/03/18 08/29/18 History Omeprazole 40 mg PO DAILY PRN 04/12/18 09/03/18 08/29/18 History Sotalol [Betapace] 40 mg PO BID 04/12/18 09/03/18 08/29/18 19:00 History Ergocalciferol [Vitamin D2] 1 cap PO QWEEK 07/11/18 09/03/18 08/29/18 History Fluticasone [Flonase] 1 spray NS QDAY 07/11/18 09/03/18 08/29/18 History Furosemide [Lasix] 20 mg PO Q48H 07/11/18 09/03/18 08/29/18 History Sodium Bicarbonate 2 tab PO BID 07/11/18 09/03/18 08/29/18 History HYDROcodone/APAP 5-325 [[place] 1 each PO Q6HR PRN #20 tablet 07/12/18 09/03/18 08/29/18 Rx 5/325] ISOSORBIDE MONOnitrate [Imdur ER] 30 mg PO DAILY 08/23/18 09/03/18 08/29/18 History hydrALAZINE [Apresoline] 25 mg PO BID 08/23/18 09/03/18 08/29/18 History ED Physical Exam - General Limitations: No Limitations General appearance: alert, in no apparent distress - Head Head exam: Present: atraumatic, normocephalic - Eye Eye exam: Present: normal appearance - ENT ENT exam: Present: mucous membranes moist - Neck Neck exam: Present: normal inspection - Respiratory Respiratory exam: Present: normal lung sounds bilaterally. Absent: respiratory distress - Cardiovascular Cardiovascular Exam: Present: regular rate, normal rhythm. Absent: systolic murmur, diastolic murmur, rubs, gallop - GI/Abdominal GI/Abdominal exam: Present: soft, normal bowel sounds - Extremities Exam Extremities exam: Present: normal inspection - Back Exam Back exam: Present: normal inspection - Neurological Exam Neurological exam: Present: alert, oriented X3 - Psychiatric Psychiatric exam: Present: normal affect, normal mood - Skin Skin exam: Present: warm, dry, intact, normal color. Absent: rash - Assessment Assessment Interval: Baseline - Level of Consciousness 1a. Level of Consciousness: alert/keenly responsive - LOC Questions 1b. LOC Questions: answers both correctly - LOC Command 1c. LOC Commands: performs tasks correctly - Best Gaze 2. Best Gaze: normal - Visual 3. Visual: no visual loss - Facial Palsy 4. Facial Palsy: normal symmetrical movement - Motor Arm 5a. Motor Arm Left: no drift 5b. Motor Arm Right: no drift - Motor Leg 6a. Motor Leg Left: no drift 6b. Motor Leg Right: no drift - Limb Ataxia 7. Limb Ataxia: absent - Sensory 8. Sensory: normal - Best Language 9. Best Language: no aphasia - Dysarthria 10. Dysarthria: normal - Extinction and Inattention 11. Extinction/Inattention: no abnormality - Scoring Total Score: 0 Stroke Severity: No Stroke Symptoms ED Course Vital Signs 09/15/18 13:25 Temperature 97.5 F L Pulse Rate 61 Respiratory 16 Rate Blood Pressure 104/52 O2 Sat by Pulse 100 Oximetry - Reevaluation(s) Reevaluation #1: Patient's blood pressure even lower. Patient will be given saline and BP monitor. Discussed all results with patient. Patient will be admitted to the hospitalist service. Patient agrees to plan of care. 09/15/18 18:21 - Consultations Consultation #1: Patient's breast surgeon paged. 09/15/18 18:14 Discussed case with patient's surgeon and the surgeon wants patient admitted to the hospitalist service. 09/15/18 18:20 Consultation #2: Hospitalist consulted for admission. Hospitalist to admit patient. Hospitalist to assume care patient. 09/15/18 18:21 ED Medical Decision Making - Lab Data Result diagrams: 09/15/18 13:55 09/15/18 13:55 - EKG Data -: EKG Interpreted by Me EKG shows normal: sinus rhythm, axis, intervals, QRS complexes, ST-T waves Rate: normal - EKG Data Interpretation: [facility] - Medical Decision Making Patient is a 68-year-old female presents emergency room with complaints of weakness and low bp. Patient's labs done. Patient's hemoglobin decreased. Patient's troponin elevated. Patient has history of CHF and chronic kidney disease. Patient's last visit with [facility]. Troponin most likely elevated due to kidney insufficiency. Patient's EKG normal. - Differential Diagnosis weakness. Elevated troponin. Dehydration. Renal insufficiency. Critical Care Time: Yes Critical care attestation.: If time is entered above; I have spent that time in minutes in the direct care of this critically ill patient, excluding procedure time. Critical Care Time: 45 minutes ED Disposition Clinical Impression: Weakness, Dehydration, Elevated troponin I level, Renal insufficiency Hypotension Qualifiers: Hypotension type: unspecified hypotension type Qualified Code(s): I95.9 - Hypotension, unspecified CKD (chronic kidney disease) Qualifiers: Chronic kidney disease stage: unspecified stage Qualified Code(s): N18.9 - Chronic kidney disease, unspecified Disposition: DC-09 OP ADMIT IP TO THIS HOSP Is pt being admited?: Yes Does the pt Need Aspirin: No Condition: Critical Time of Disposition: 18:23
[2018-09-15] MEDS ORDERED: NACL 0.9% 1000 ML 1,000 ML IV ONE (18:13)
[2018-09-15] MEDS ORDERED: NACL 0.9% 500 ML 500 ML IV ONE (18:22)
[2018-09-15 18:52] LABS: Creatine Kinase MB 1.9 ng/mL (0.0-4.0)
--- NOTE | 2018-09-15 19:06 | History and Physical Report ---
History of Present Illness Chief complaint: My blood pressure is low, and im just weak History of present illness: 68 YO Female with HTN, Breast Cancer, GERD, NM, CAD S/P Stent Placement, CKD, Breast Cancer S/P Mastectomy present to ED for evaluation. Pt states that she has experienced generalized weakness over the past 1 week, as well as recurrent low blood pressure. Pt acknowledges shortness of breath with exertion, decreased exercise tolerance, and occasional dypsnea at rest. Pt was seen and evaluated by Dr. Henao and referred to the ED for care. EMS notified, and upon arrival the patient was found to be in distress. Pt transported to [facility]. Pt seen and evaluated in ED and found to have evidence of CHF Decompensation, as well as NSTEMI, acute Renal Failure. Pt initiated on Heparin drip in ED. Cardiology consulted in ED. Pt admitted to telemetry. Nephrology consulted in ED. [employer] service consulted in ED as well. Pt denies fever, chills, CP, Palpitations, NVD, Trauma, BRBPR, Productive cough, skin rash, hemoptysis, prolonged travel/immobility, unilateral leg swelling, calf pain, dysuria, urgency, freq uency, or recent ill contacts. No prior admission for review. All listed medication reconciled at time of admission. 30 minutes extra time spent discussing care plan with patient and daughters who are at bedside during exam and interview. Past History Past Medical History: acute NM, cancer, hypertension, hyperlipidemia, renal failure Past Surgical History: mastectomy Social history: single. denies: smoking, alcohol abuse, prescription drug abuse Family history: diabetes, hypertension Medications and Allergies Allergies Allergy/AdvReac Type Severity Reaction Status Date / Time Tlyeqxa-Hdv-Ocw Reductase Allergy Unknown Verified 09/15/18 13:18 Inhibitor evolocumab AdvReac BAD BACK Verified 09/15/18 13:18 [From Repatha Pushtronex] PAIN Home Medications Medication Instructions Recorded Confirmed Last Taken Type Aspirin [Adult Aspirin Regimen] 81 mg PO DAILY 04/12/18 09/15/18 08/29/18 History Benazepril HCl 40 mg PO DAILY 04/12/18 09/15/18 08/29/18 History Carvedilol [Coreg] 6.25 mg PO BID 04/12/18 09/15/18 08/29/18 19:00 History Levocetirizine Dihydrochloride 5 mg PO DAILY 04/12/18 09/15/18 08/29/18 History Omeprazole 40 mg PO DAILY PRN 04/12/18 09/15/18 08/29/18 History Sotalol [Betapace] 40 mg PO BID 04/12/18 09/15/18 08/29/18 19:00 History Ergocalciferol [Vitamin D2] 1 cap PO QWEEK 07/11/18 09/15/18 08/29/18 History Fluticasone [Flonase] 1 spray NS QDAY 07/11/18 09/15/18 08/29/18 History Furosemide [Lasix] 20 mg PO Q48H 07/11/18 09/15/18 08/29/18 History Sodium Bicarbonate 2 tab PO BID 07/11/18 09/15/18 08/29/18 History HYDROcodone/APAP 5-325 [[place] 1 each PO Q6HR PRN #20 tablet 07/12/18 09/15/18 08/29/18 Rx 5/325] ISOSORBIDE MONOnitrate [Imdur ER] 30 mg PO DAILY 08/23/18 09/15/18 08/29/18 History hydrALAZINE [Apresoline] 25 mg PO BID 08/23/18 09/15/18 08/29/18 History Review of Systems Constitutional: weakness, malaise, no weight loss, no weight gain Ears, nose, mouth and throat: no ear pain, no ear discharge, no tinnitis, no decreased hearing, no nose pain Breasts: no change in shape, no swelling, no mass Cardiovascular: dyspnea on exertion, decreased exercise tolerance, no chest pain, no orthopnea, no rapid/irregular heart beat, no edema, no syncope, no paroxysmal nocturnal dyspnea Respiratory: no cough, no cough with sputum, no excessive sputum, no hemoptysis Gastrointestinal: no nausea, no vomiting, no diarrhea, no constipation, no change in bowel habits Genitourinary Female: no pelvic pain, no flank pain, no menorrhagia, no dysuria, no urinary frequency, no urgency Menstruation: no menses 1-7 days Rectal: no pain, no incontinence, no bleeding Musculoskeletal: no neck stiffness, no neck pain, no shooting arm pain, no arm numbness/tingling, no low back pain, no shooting leg pain Integumentary: no rash, no pruritis, no redness, no sores, no wounds Neurological: aphasia, no transient paralysis, no paralysis, no weakness, no parathesias, no numbness Psychiatric: no anxiety, no memory loss, no change in sleep habits, no sleep disturbances, no insomnia Endocrine: no cold intolerance, no heat intolerance, no polyphagia, no polydipsi a, no polyuria, no nocturia, no excessive sweating, no flushing Hematologic/Lymphatic: no easy bruising, no easy bleeding, no lymphadenopathy, no lymphedema Allergic/Immunologic: no urticaria, no allergic rhinitis, no wheezing, no persistent infections, no anaphylaxis, no angioedema Exam - Constitutional Vitals: Temp Pulse Resp BP Pulse Ox 97.5 F L 61 16 104/52 100 09/15/18 13:25 09/15/18 13:25 09/15/18 13:25 09/15/18 13:25 09/15/18 13:25 General appearance: Present: no acute distress, well-nourished - EENT Eyes: Present: PERRL ENT: hearing intact, clear oral mucosa - Neck Neck: Present: supple, normal ROM - Respiratory Respiratory effort: normal Respiratory: bilateral: CTA - Cardiovascular Heart Sounds: Present: S1 & S2. Absent: rub, click - Extremities Extremities: pulses symmetrical, No edema Peripheral Pulses: within normal limits - Abdominal General gastrointestinal: Present: soft, non-tender, non-distended, normal bowel sounds Female genitourinary: Present: normal - Integumentary Integumentary: Present: clear, warm, dry - Musculoskeletal Musculoskeletal: gait normal, strength equal bilaterally - Psychiatric Psychiatric: appropriate mood/affect, intact judgment & insight - Neurologic Neurologic: CNII-XII intact, moves all extremities Results - Labs CBC & Chem 7: 09/15/18 19:56 09/16/18 03:00 Labs: Abnormal lab results 09/15/18 09/15/18 Range/Units 13:55 13:55 RBC 3.22 L (3.65-5.03) M/mm3 RDW 18.8 H (13.2-15.2) % [place] % (Auto) 8.7 H (0.0-7.3) % Lymph # 1.1 L (1.2-5.4) K/mm3 BUN 31 H (7-17) mg/dL Creatinine 1.8 H (0.7-1.2) mg/dL Glucose 111 H (65-100) mg/dL Troponin T 0.265 H* (0.00-0.029) ng/mL Triglycerides 172 H (2-149) mg/dL Cholesterol 217 H (50-199) mg/dL LDL Cholesterol Direct 141 H (50-130) mg/dL Assessment and Plan - Patient Problems (1) CHF (congestive heart failure) Current Visit: Yes Status: Acute Qualifiers: Heart failure type: systolic Heart failure chronicity: acute Qualified Code(s): I50.21 - Acute systolic (congestive) heart failure Plan to address problem: Admit to telemetry, strict I/O, daily weight, afterload reduction, monitor uop q shift, diuresis as tolerated, afterload reductions, Echo, thyroid panel, magnesium level, chest x ray, bnp, pulse oximetry, supplemental oxygen. (2) NSTEMI (non-ST elevated myocardial infarction) Current Visit: Yes Status: Acute Plan to address problem: Cardiology consulted in ED, Pt admitted to telemetry, serial cardiac enzymes, Heprain drip, supportive care. (3) ARF (acute renal failure) with tubular necrosis Current Visit: Yes Status: Acute Plan to address problem: IVF resuscitation therapy, Nephrology consulted in ED. avoid nephrotoxic agents. (4) Breast cancer Current Visit: Yes Status: Acute Qualifiers: Laterality: unspecified laterality Plan to address problem: GYC consulted in ED. Pt is S/P Mastectomy with drain in place. supportive care. (5) HLD (hyperlipidemia) Current Visit: Yes Status: Acute Qualifiers: Hyperlipidemia type: mixed hyperlipidemia Qualified Code(s): E78.2 - Mixed hyperlipidemia Plan to address problem: low cholesterol diet, statin therapy. (6) DVT prophylaxis Current Visit: Yes Status: Acute Plan to address problem: SCD to BLE while in bed, continue therapeutic anticoagulation
[2018-09-15] MEDS ORDERED: SODIUM CHLORIDE FLUSH SYRINGE 10 ML IV PRN ×2 (19:21→19:27)
[2018-09-15] MEDS ORDERED: TYLENOL PO PRN (19:21)
[2018-09-15] MEDS ORDERED: PROVENTIL IH PRN (19:21)
[2018-09-15] MEDS ORDERED: ZOFRAN IV PRN (19:21)
[2018-09-15] MEDS ORDERED: NORCO 5/325 PO PRN (19:25)
[2018-09-15] MEDS ORDERED: NON-FORMULARY (Omeprazole [Omeprazole] 40 MG) PO PRN (19:25)
[2018-09-15] MEDS ORDERED: NACL 0.45% 1000 ML 1,000 ML IV SCH (20:00)
[2018-09-15 20:22] LABS: Hematocrit 28.2 % (30.3-42.9); Hemoglobin 9.9 gm/dl (10.1-14.3)
[2018-09-15 20:33] LABS: INR 1.04 (0.87-1.13)
[2018-09-15 20:34] LABS: Partial Thromboplastin Time 26.8 Sec. (24.2-36.6)
[2018-09-15] MEDS ORDERED: NORCO 5/325 ONE (20:35)
[2018-09-15 21:05] LABS: Free T4 (Free Thyroxine) 1.06 ng/dL (0.76-1.46)
[2018-09-15] MEDS: HEPARIN/ 0.45% NACL-25,000 UNIT/500 ML 25,000 UNIT/500 ML BAG IV SCH (21:35)
[2018-09-15] MEDS: COREG PO SCH (22:18)
[2018-09-15] MEDS: APRESOLINE PO SCH (22:18)
[2018-09-15] MEDS: BETAPACE PO SCH (22:18)
[2018-09-15] MEDS: SODIUM CHLORIDE FLUSH SYRINGE 10 ML IV SCH (22:18)
[2018-09-16 01:26] LABS: Creatinine,Urine 67.2 mg/dL (0.1-20.0)
[2018-09-16 04:12] LABS: Calcium 8.9 mg/dL (8.4-10.2)
--- NOTE | 2018-09-16 07:19 | Consultation ---
History of Present Illness Consult date: 09/16/18 Consult reason: abnormal cardiac enzymes History of present illness: This is a 68-year-old female with a past medical history of hypertension, CA D/stent/LA, chronic kidney disease, GERD and breast cancer status post left breast mastectomy/reconstruction with tissue bladder changer placement presents to [facility] emergency department complaining of weakness. Of note the patient had a recent left mastectomy on August 30. She presents complaining of generalized weakness and also some hypotension. In the emergency department the patient is afebrile with mild anemia. Additionally her creatinine is 1.6 which is down from 2.0 on August 30. The patient had elevated cardiac troponins of 0.265 which are gradually trending down. An EKG reveals sinus rhythm with no acute ST segment changes and is unchanged from her EKG on 08/18/2018. Today the patient denies having any fevers, chills, night sweats, she denies any chest pain, she denies any shortness breath, she denies syncope, she denies any lower extremity edema. The patient reports that the weakness that she feels now is not comparable to what she felt she had her heart attack in [place]. Past History Past Medical History: CAD, cancer, GERD, heart failure, hypertension, hyperlipidemia Past Surgical History: mastectomy Social history: denies: smoking, IV drug use Family history: hypertension Medications and Allergies Allergies Allergy/AdvReac Type Severity Reaction Status Date / Time Bkxtjsr-Qek-Gmu Reductase Allergy Unknown Verified 09/15/18 13:18 Inhibitor evolocumab AdvReac BAD BACK Verified 09/15/18 13:18 [From Repatha Pushtronex] PAIN Home Medications Medication Instructions Recorded Confirmed Last Taken Type Aspirin [Adult Aspirin Regimen] 81 mg PO DAILY 04/12/18 09/15/18 08/29/18 History Benazepril HCl 40 mg PO DAILY 04/12/18 09/15/18 08/29/18 History Carvedilol [Coreg] 6.25 mg PO BID 04/12/18 09/15/18 08/29/18 19:00 History Levocetirizine Dihydrochloride 5 mg PO DAILY 04/12/18 09/15/18 08/29/18 History Omeprazole 40 mg PO DAILY PRN 04/12/18 09/15/18 08/29/18 History Sotalol [Betapace] 40 mg PO BID 04/12/18 09/15/18 08/29/18 19:00 History Ergocalciferol [Vitamin D2] 1 cap PO QWEEK 07/11/18 09/15/18 08/29/18 History Fluticasone [Flonase] 1 spray NS QDAY 07/11/18 09/15/18 08/29/18 History Furosemide [Lasix] 20 mg PO Q48H 07/11/18 09/15/18 08/29/18 History Sodium Bicarbonate 2 tab PO BID 07/11/18 09/15/18 08/29/18 History HYDROcodone/APAP 5-325 [[place] 1 each PO Q6HR PRN #20 tablet 07/12/18 09/15/18 08/29/18 Rx 5/325] ISOSORBIDE MONOnitrate [Imdur ER] 30 mg PO DAILY 08/23/18 09/15/18 08/29/18 History hydrALAZINE [Apresoline] 25 mg PO BID 08/23/18 09/15/18 08/29/18 History Active Meds: Active Medications Acetaminophen (Tylenol) 650 mg PO Q4H PRN PRN Reason: Pain MILD(1-3)/Fever >100.5/HOU Acetaminophen/Hydrocodone Bitart ([place] 5/325) 1 each PO Q6HR PRN PRN Reason: Pain Last Admin: 09/15/18 20:45 Dose: 1 each Documented by: Albuterol (Proventil) 2.5 mg IH Q4HRT PRN PRN Reason: Shortness Of Breath Aspirin (Halfprin Ec) 81 mg PO DAILY [facility] Carvedilol (Coreg) 6.25 mg PO BID [facility] Last Admin: 09/15/18 22:18 Dose: Not Given Documented by: Ergocalciferol (Vitamin D2) 50,000 unit PO Fr RENE Hydralazine HCl (Apresoline) 25 mg PO BID [facility] Last Admin: 09/15/18 22:18 Dose: Not Given Documented by: Sodium Chloride (Nacl 0.45% 1000 Ml) 1,000 mls @ 42 mls/hr IV DIRECT RENE Heparin Sodium/Sodium Chloride (Heparin/ 0.45% Nacl-25,000 Unit/500 Ml) 25,000 unit in 500 mls @ 20 mls/hr IV TITRATE RENE; Protocol Last Titration: 09/16/18 05:21 Dose: 1,000 units/hr, 20 mls/hr Documented by: Isosorbide Mononitrate (Imdur) 30 mg PO DAILY [facility] Loratadine (Claritin) 10 mg PO DAILY [facility] Ondansetron HCl (Zofran) 4 mg IV Q8H PRN PRN Reason: Nausea And Vomiting Pantoprazole Sodium (Protonix) 40 mg PO DAILY PRN PRN Reason: Indigestion Sodium Bicarbonate (Sodium Bicarbonate) mg PO BID [facility] Sodium Chloride (Sodium Chloride Flush Syringe 10 Ml) 10 ml IV BID [facility] Last Admin: 09/15/18 22:18 Dose: Not Given Documented by: Sodium Chloride (Sodium Chloride Flush Syringe 10 Ml) 10 ml IV PRN PRN PRN Reason: LINE FLUSH Sodium Chloride (Sodium Chloride Flush Syringe 10 Ml) 10 ml IV PRN PRN PRN Reason: LINE FLUSH Stop: 09/18/18 19:26 Sotalol HCl (Betapace) 40 mg PO BID [facility] Last Admin: 09/15/18 22:18 Dose: Not Given Documented by: Review of Systems Constitutional: fatigue, weakness, no fever, no chills, no sweats Breasts: deferred Cardiovascular: no chest pain, no orthopnea, no palpitations Respiratory: no cough, no excessive sputum Gastrointestinal: no abdominal pain, no nausea, no vomiting Genitourinary Female: no dysuria, no urgency Rectal: no pain, no incontinence Musculoskeletal: no neck stiffness, no neck pain Integumentary: no deferred, no rash Neurological: no head injury, no paralysis, no tremors Psychiatric: no anxiety Endocrine: no excessive thirst, no polydipsia Allergic/Immunologic: no urticaria, no allergic rhinitis Physical Examination Vital Signs Temp Pulse Resp BP Pulse Ox 97.5 F L 61 16 104/52 100 09/15/18 13:25 09/15/18 13:25 09/15/18 13:25 09/15/18 13:25 09/15/18 13:25 General appearance: no acute distress HEENT: Positive: PERRL Neck: Positive: neck supple, trachea midline Cardiac: Positive: Reg Rate and Rhythm, Systolic Murmur Lungs: Positive: Normal Exam, clear to auscultation Neuro: Positive: Grossly Intact Abdomen: Positive: Unremarkable, Soft, Active Bowel Sounds Female genitourinary: deferred Skin: Negative: Rash Extremities: Present: warm. Absent: edema Results 09/15/18 19:56 09/16/18 03:00 Cardiac Enzymes 09/15/18 09/15/18 Range/Units 13:55 18:25 AST 14 (5-40) units/L CK-MB (CK-2) 1.9 (0.0-4.0) ng/mL Coagulation 09/15/18 Range/Units 19:56 PT 13.3 (12.2-14.9) Sec. INR 1.04 (0.87-1.13) APTT 26.8 (24.2-36.6) Sec. Lipids 09/15/18 Range/Units 13:55 Triglycerides 172 H (2-149) mg/dL Cholesterol 217 H (50-199) mg/dL HDL Cholesterol 46 (40-59) mg/dL Cholesterol/HDL Ratio 4.71 % CBC 09/15/18 09/15/18 Range/Units 13:55 19:56 WBC 4.7 (4.5-11.0) K/mm3 RBC 3.22 L (3.65-5.03) M/mm3 Hgb 10.2 9.9 L (10.1-14.3) gm/dl Hct 31.0 28.2 L (30.3-42.9) % Plt Count 333 303 (140-440) K/mm3 Lymph # 1.1 L (1.2-5.4) K/mm3 [place] # 0.4 (0.0-0.8) K/mm3 Eos # 0.1 (0.0-0.4) K/mm3 Baso # 0.0 (0.0-0.1) K/mm3 Comprehensive Metabolic Panel 09/15/18 09/16/18 Range/Units 13:55 03:00 Sodium 139 138 (137-145) mmol/L Potassium 4.6 4.7 (3.6-5.0) mmol/L Chloride 103.1 104.5 (98-107) mmol/L Carbon Dioxide 24 23 (22-30) mmol/L BUN 31 H 30 H (7-17) mg/dL Creatinine 1.8 H 1.6 H (0.7-1.2) mg/dL Glucose 111 H 91 (65-100) mg/dL Calcium 9.8 8.9 (8.4-10.2) mg/dL AST 14 (5-40) units/L ALT 13 (7-56) units/L Alkaline Phosphatase 70 (35-129) units/L Total Protein 7.4 (6.3-8.2) g/dL Albumin 3.9 (3.9-5) g/dL - Imaging and Cardiology Echo: report reviewed (ECHO 04/25: EF 35-40%, mild AR, mod MAC, mod-sev MR, mod- sev TR) EKG: report reviewed - EKG Interpretation EKG: no acute changes EKG interpretations - Telemetry EKG Rhythm: Sinus Rhythm Assessment and Plan 68-year-old female [facility] who was admitted with generalized weakness after recent mastectomy in August 30 and noted to have elevated cardiac troponins No chest pain/no anginal equivalent No EKG changes Likely nonspecific in setting CKD Monitor on Tele Continue ASA/allergy to statin/on Zetia Echocardiogram 04/25: EF 35-40, grade 3 diastolic dysfunction, [id number] aortic regurgitation, moderate to severe mitral regurgitation, [id number] tricuspid regurgitation, severe pulmonary hypertension Myocardial perfusion scan 05/23: 1. There is severely reduced perfusion fixed defect large size in the mid anteroapical wall and inferoapical wall. No ischemia detected. EF 36% CAD/stent/LA 2013 ICM EF 35-40% HFrEF mod-sev MR Severe Pulmonary Hypertension hypertension GERD chronic kidney disease breast cancer
--- NOTE | 2018-09-16 09:07 | Progress Note ---
Assessment and Plan Assessment and plan: Elevated troponin. No chest pain/no anginal equivalent, No EKG changes. Etiology Likely nonspecific in setting CKD.continue to Monitor on Telemetry. Continue ASA/allergy to statin/on Zetia CAD/stent/CA 2013. As above. Myocardial perfusion scan 05/23: 1. There is severely reduced perfusion fixed defect large size in the mid anteroapical wall and inferoapical wall. No ischemia detected. EF 36% ICM EF 35-40%. Echocardiogram 04/25: EF 35-40, grade 3 diastolic dysfunction, [id number]-sk-[id number] aortic regurgitation, moderate to severe mitral regurgitation, nfhupciz-[id number] tricuspid regurgitation, severe pulmonary hypertension Acute on chronic HFrEF. Continue per cardiology. Moderate to severe MR Severe Pulmonary Hypertension. Supportive care. Hyperlipidemia. Continue Zetia Hypertension. Continue current antihypertensive medications. GERD. Continue PPI. Chronic kidney disease. Monitor creatinine. Breast cancer. Recent mastectomy. History Interval history: No new issues overnight. Hospitalist Physical - Constitutional Vitals: Temp Pulse Resp BP Pulse Ox 97.9 F 70 18 124/63 100 09/16/18 08:38 09/16/18 08:38 09/16/18 08:38 09/16/18 08:38 09/16/18 08:38 General appearance: Present: no acute distress - EENT Eyes: Present: PERRL, EOM intact ENT: hearing intact, clear oral mucosa, dentition normal - Neck Neck: Present: supple, normal ROM - Respiratory Respiratory effort: normal Respiratory: bilateral: CTA - Cardiovascular Rhythm: regular Heart Sounds: Present: S1 & S2. Absent: gallop, rub - Extremities Extremities: no ischemia, No edema, Full ROM - Abdominal General gastrointestinal: soft, non-tender, non-distended, normal bowel sounds - Integumentary Integumentary: Present: clear, warm, dry - Neurologic Neurologic: CNII-XII intact, moves all extremities Results - Labs CBC & Chem 7: 09/15/18 19:56 09/16/18 03:00 Labs: Laboratory Last Values WBC 4.7 K/mm3 (4.5-11.0) 09/15/18 13:55 RBC 3.22 M/mm3 (3.65-5.03) L 09/15/18 13:55 Hgb 9.9 gm/dl (10.1-14.3) L 09/15/18 19:56 Hct 28.2 % (30.3-42.9) L 09/15/18 19:56 MCV 96 fl (79-97) 09/15/18 13:55 MCH 32 pg (28-32) 09/15/18 13:55 MCHC 33 % (30-34) 09/15/18 13:55 RDW 18.8 % (13.2-15.2) H 09/15/18 13:55 Plt Count 303 K/mm3 (140-440) 09/15/18 19:56 Lymph % (Auto) 23.1 % (13.4-35.0) 09/15/18 13:55 [place] % (Auto) 8.7 % (0.0-7.3) H 09/15/18 13:55 Eos % (Auto) 2.6 % (0.0-4.3) 09/15/18 13:55 Baso % (Auto) 0.9 % (0.0-1.8) 09/15/18 13:55 Lymph # 1.1 K/mm3 (1.2-5.4) L 09/15/18 13:55 [place] # 0.4 K/mm3 (0.0-0.8) 09/15/18 13:55 Eos # 0.1 K/mm3 (0.0-0.4) 09/15/18 13:55 Baso # 0.0 K/mm3 (0.0-0.1) 09/15/18 13:55 Seg Neutrophils % 64.7 % (40.0-70.0) 09/15/18 13:55 Seg Neutrophils # 3.0 K/mm3 (1.8-7.7) 09/15/18 13:55 PT 13.3 Sec. (12.2-14.9) 09/15/18 19:56 INR 1.04 (0.87-1.13) 09/15/18 19:56 APTT 26.8 Sec. (24.2-36.6) 09/15/18 19:56 Heparin Anti-Xa Level 0.57 U.I./ml (0.3-0.7) 09/16/18 04:00 Sodium 138 mmol/L (137-145) 09/16/18 03:00 Potassium 4.7 mmol/L (3.6-5.0) 09/16/18 03:00 Chloride 104.5 mmol/L (98-107) 09/16/18 03:00 Carbon Dioxide 23 mmol/L (22-30) 09/16/18 03:00 15 mmol/L 09/16/18 03:00 BUN 30 mg/dL (7-17) H 09/16/18 03:00 1.6 mg/dL (0.7-1.2) H 09/16/18 03:00 Estimated GFR 39 ml/min 09/16/18 03:00 19 % 09/16/18 03:00 Glucose 91 mg/dL (65-100) 09/16/18 03:00 Calcium 8.9 mg/dL (8.4-10.2) 09/16/18 03:00 Magnesium 2.20 mg/dL (1.7-2.3) 09/15/18 19:56 0.40 mg/dL (0.1-1.2) 09/15/18 13:55 AST 14 units/L (5-40) 09/15/18 13:55 ALT 13 units/L (7-56) 09/15/18 13:55 70 units/L (35-129) 09/15/18 13:55 58 units/L (30-135) 09/15/18 18:25 CK-MB (CK-2) 1.9 ng/mL (0.0-4.0) 09/15/18 18:25 CK-MB (CK-2) Rel Index 3.2 (0-4) 09/15/18 18:25 0.235 ng/mL (0.00-0.029) H* 09/16/18 00:40 7.4 g/dL (6.3-8.2) 09/15/18 13:55 3.9 g/dL (3.9-5) 09/15/18 13:55 1.1 % 09/15/18 13:55 Triglycerides 172 mg/dL (2-149) H 09/15/18 13:55 Cholesterol 217 mg/dL (50-199) H 09/15/18 13:55 141 mg/dL (50-130) H 09/15/18 13:55 46 mg/dL (40-59) 09/15/18 13:55 4.71 % 09/15/18 13:55 TSH 0.586 mlU/mL (0.270-4.200) 09/15/18 19:56 Free T4 1.06 ng/dL (0.76-1.46) 09/15/18 19:56 Yellow (Yellow) 09/15/18 15:00 Clear (Clear) 09/15/18 15:00 6.0 (5.0-7.0) 09/15/18 15:00 Ur Specific [place] 1.009 (1.003-1.030) 09/15/18 15:00 <15 mg/dl mg/dL (Negative) 09/15/18 15:00 Neg mg/dL (Negative) 09/15/18 15:00 Neg mg/dL (Negative) 09/15/18 15:00 Neg (Negative) 09/15/18 15:00 Neg (Negative) 09/15/18 15:00 Neg (Negative) 09/15/18 15:00 < 2.0 mg/dL (<2.0) 09/15/18 15:00 Ur Leukocyte Esterase Neg (Negative) 09/15/18 15:00 2.0 /HPF (0.0-6.0) 09/15/18 15:00 5.0 /HPF (0.0-6.0) 09/15/18 15:00 U Epithel Cells (Auto) 1.0 /HPF (0-13.0) 09/15/18 15:00 Few /HPF 09/15/18 15:00 67.2 mg/dL (0.1-20.0) H 09/15/18 00:30 54 mmol/L 09/15/18 00:30 Active Medications - Current Medications Current Medications: Generic Name Dose Route Start Last Admin Trade Name Freq PRN Reason Stop Dose Admin Acetaminophen 650 mg 09/15/18 19:21 Tylenol PO Q4H PRN Pain MILD(1-3)/Fever >100.5/HOU Acetaminophen/Hydrocodone Bitart 1 each 09/15/18 19:25 09/15/18 20:45 [place] 5/325 PO 1 each Q6HR PRN Administration Pain Albuterol 2.5 mg 09/15/18 19:21 Proventil IH Q4HRT PRN Shortness Of Breath Aspirin 81 mg 09/16/18 10:00 Halfprin Ec PO DAILY [facility] Carvedilol 6.25 mg 09/15/18 22:00 09/15/18 22:18 Coreg PO Not Given BID [facility] Ergocalciferol 50,000 unit 09/22/18 10:00 Vitamin D2 PO Fr [facility] Hydralazine HCl 25 mg 09/15/18 22:00 09/15/18 22:18 Apresoline PO Not Given BID [facility] Sodium Chloride 1,000 mls @ 42 mls/hr 09/15/18 20:00 Nacl 0.45% 1000 Ml IV DIRECT [facility] Heparin Sodium/Sodium Chloride 25,000 unit in 500 mls @ 20 mls/hr 09/15/18 20:00 09/16/18 05:21 Heparin/ 0.45% Nacl-25,000 Unit/500 Ml IV 1,000 units/hr TITRATE RENE 20 mls/hr Titration Protocol 1,000 UNITS/HR Isosorbide Mononitrate 30 mg 09/16/18 10:00 Imdur PO DAILY [facility] Loratadine 10 mg 09/16/18 10:00 Claritin PO DAILY [facility] Ondansetron HCl 4 mg 09/15/18 19:21 Zofran IV Q8H PRN Nausea And Vomiting Pantoprazole Sodium 40 mg 09/16/18 10:00 Protonix PO DAILY PRN Indigestion Sodium Bicarbonate 1,300 mg 09/15/18 22:00 Sodium Bicarbonate PO BID [facility] Sodium Chloride 10 ml 09/15/18 22:00 09/15/18 22:18 Sodium Chloride Flush Syringe 10 Ml IV Not Given BID [facility] Sodium Chloride 10 ml 09/15/18 19:21 Sodium Chloride Flush Syringe 10 Ml IV PRN PRN LINE FLUSH Sodium Chloride 10 ml 09/15/18 19:27 Sodium Chloride Flush Syringe 10 Ml IV 09/18/18 19:26 PRN PRN LINE FLUSH Sotalol HCl 40 mg 09/15/18 22:00 09/15/18 22:18 Betapace PO Not Given BID [facility]
[2018-09-16] MEDS ORDERED: ZESTRIL PO SCH (10:00)
[2018-09-16] MEDS ORDERED: LEVOCETIRIZINE DIHYDROCHLORIDE 5 MG PO SCH (10:00)
[2018-09-16] MEDS ORDERED: NON-FORMULARY (Benazepril Hcl [Benazepril Hcl] 40 MG) PO SCH (10:00)
[2018-09-16] MEDS ORDERED: PROTONIX PO PRN (10:00)
[2018-09-16] MEDS: BETAPACE PO SCH ×2 (10:05→21:35)
[2018-09-16] MEDS: SODIUM BICARBONATE PO SCH ×3 (10:06→21:41)
[2018-09-16] MEDS: CLARITIN PO SCH ×2 (10:06)
[2018-09-16] MEDS: IMDUR PO SCH (10:06)
[2018-09-16] MEDS: COREG PO SCH ×2 (10:07→21:36)
[2018-09-16] MEDS: HALFPRIN EC PO SCH ×2 (10:07→10:14)
[2018-09-16] MEDS: APRESOLINE PO SCH ×2 (10:08→21:36)
[2018-09-16] MEDS: SODIUM CHLORIDE FLUSH SYRINGE 10 ML IV SCH ×2 (10:09→21:38)
--- NOTE | 2018-09-16 12:48 | Consultation ---
History of Present Illness - Reason for Consult Consult date: 09/16/18 acute renal failure - History of Present Illness The patient is a 68 YO female with a medical history significant for Hypert ension, CAD/UT s/p stent, Paroxysmal A.fib, CKD stage 3, Severe Pulomnary HTN, GERD and Breast cancer s/p left breast mastectomy/reconstruction with tissue studio technician video operator placement on August 30 who presented to [facility] ED with c/o generalized weakness. Patient reports having decreased appetite episode of N &V, poor PO intake and fatigue since the surgery. In the emergency department the patient wa afebrile with BP 104/52. Her creatinine was 1.8 and Troponin of 0.265. Patient denies having any fever, chills, chest pain, shortness breath, dizziness, syncope, leg swelling, abd apin, dysuria, hematuria or rash. The patient was admitted with volume depletion. Nephrology was consulted to manage SEBASTIEN / CKD. Past History Past Medical History: CAD, cancer, GERD, heart failure, hypertension, hyperlipidemia Past Surgical History: mastectomy Social history: denies: smoking, IV drug use Family history: hypertension Medications and Allergies Allergies Allergy/AdvReac Type Severity Reaction Status Date / Time Dofksbz-Gdi-Mqu Reductase Allergy Unknown Verified 09/15/18 13:18 Inhibitor evolocumab AdvReac BAD BACK Verified 09/15/18 13:18 [From Repatha Pushtronex] PAIN Home Medications Medication Instructions Recorded Confirmed Last Taken Type Aspirin [Adult Aspirin Regimen] 81 mg PO DAILY 04/12/18 09/15/18 08/29/18 History Benazepril HCl 40 mg PO DAILY 04/12/18 09/15/18 08/29/18 History Carvedilol [Coreg] 6.25 mg PO BID 04/12/18 09/15/18 08/29/18 19:00 History Levocetirizine Dihydrochloride 5 mg PO DAILY 04/12/18 09/15/18 08/29/18 History Omeprazole 40 mg PO DAILY PRN 04/12/18 09/15/18 08/29/18 History Sotalol [Betapace] 40 mg PO BID 04/12/18 09/15/18 08/29/18 19:00 History Ergocalciferol [Vitamin D2] 1 cap PO QWEEK 07/11/18 09/15/18 08/29/18 History Fluticasone [Flonase] 1 spray NS QDAY 07/11/18 09/15/18 08/29/18 History Furosemide [Lasix] 20 mg PO Q48H 07/11/18 09/15/18 08/29/18 History Sodium Bicarbonate 2 tab PO BID 07/11/18 09/15/18 08/29/18 History HYDROcodone/APAP 5-325 [[place] 1 each PO Q6HR PRN #20 tablet 07/12/18 09/15/18 08/29/18 Rx 5/325] ISOSORBIDE MONOnitrate [Imdur ER] 30 mg PO DAILY 08/23/18 09/15/18 08/29/18 History hydrALAZINE [Apresoline] 25 mg PO BID 08/23/18 09/15/18 08/29/18 History Active Meds: Active Medications Acetaminophen (Tylenol) 650 mg PO Q4H PRN PRN Reason: Pain MILD(1-3)/Fever >100.5/HOU Acetaminophen/Hydrocodone Bitart ([place] 5/325) 1 each PO Q6HR PRN PRN Reason: Pain Last Admin: 09/15/18 20:45 Dose: 1 each Documented by: Albuterol (Proventil) 2.5 mg IH Q4HRT PRN PRN Reason: Shortness Of Breath Aspirin (Halfprin Ec) 81 mg PO DAILY [facility] Last Admin: 09/16/18 10:07 Dose: 81 mg Documented by: Carvedilol (Coreg) 6.25 mg PO BID [facility] Last Admin: 09/16/18 10:07 Dose: 6.25 mg Documented by: Ergocalciferol (Vitamin D2) 50,000 unit PO Fr RENE Hydralazine HCl (Apresoline) 25 mg PO BID [facility] Last Admin: 09/16/18 10:08 Dose: 25 mg Documented by: Sodium Chloride (Nacl 0.45% 1000 Ml) 1,000 mls @ 42 mls/hr IV DIRECT RENE Heparin Sodium/Sodium Chloride (Heparin/ 0.45% Nacl-25,000 Unit/500 Ml) 25,000 unit in 500 mls @ 20 mls/hr IV TITRATE RENE; Protocol Last Titration: 09/16/18 05:21 Dose: 1,000 units/hr, 20 mls/hr Documented by: Isosorbide Mononitrate (Imdur) 30 mg PO DAILY [facility] Last Admin: 09/16/18 10:06 Dose: 30 mg Documented by: Loratadine (Claritin) 10 mg PO DAILY [facility] Last Admin: 09/16/18 10:06 Dose: 10 mg Documented by: Ondansetron HCl (Zofran) 4 mg IV Q8H PRN PRN Reason: Nausea And Vomiting Pantoprazole Sodium (Protonix) 40 mg PO DAILY PRN PRN Reason: Indigestion Sodium Bicarbonate (Sodium Bicarbonate) 1,300 mg PO BID [facility] Last Admin: 09/16/18 10:06 Dose: 1,300 mg Documented by: Sodium Chloride (Sodium Chloride Flush Syringe 10 Ml) 10 ml IV BID [facility] Last Admin: 09/16/18 10:09 Dose: 10 ml Documented by: Sodium Chloride (Sodium Chloride Flush Syringe 10 Ml) 10 ml IV PRN PRN PRN Reason: LINE FLUSH Sodium Chloride (Sodium Chloride Flush Syringe 10 Ml) 10 ml IV PRN PRN PRN Reason: LINE FLUSH Stop: 09/18/18 19:26 Sotalol HCl (Betapace) 40 mg PO BID [facility] Last Admin: 09/15/18 22:18 Dose: Not Given Documented by: Review of Systems Constitutional: weight loss, anorexia, fatigue, weakness, poor appetite, no weight gain, no fever, no chills, no night sweats Breasts: other (recent surgery) Cardiovascular: high blood pressure, no chest pain, no orthopnea, no edema, no syncope, no lightheadedness, no shortness of breath, no dyspnea on exertion, no leg edema Respiratory: no cough, no cough with sputum, no hemoptysis, no shortness of breath, no dyspnea on exertion Gastrointestinal: nausea, vomiting, melena (was on Iron pills.), no abdominal pain, no diarrhea, no constipation, no hematochezia Genitourinary Female: no dysuria, no hematuria Rectal: no bleeding Musculoskeletal: muscle weakness, no muscle cramps, no gait dysfunction Integumentary: no rash, no wounds, no jaundice Neurological: no paralysis, no weakness, no seizures, no syncope, no convulsions, no aphasia, no change in speech, no change in mentation, no confusion, no memory loss Exam - Vital Signs Vital signs: Vital Signs Temp Pulse Resp BP Pulse Ox 97.5 F L 61 16 104/52 100 09/15/18 13:25 09/15/18 13:25 09/15/18 13:25 09/15/18 13:25 09/15/18 13:25 Results - Lab Results 09/15/18 19:56 09/16/18 03:00 Most recent lab results Calcium 8.9 mg/dL (8.4-10.2) 09/16/18 03:00 Magnesium 2.20 mg/dL (1.7-2.3) 09/15/18 19:56 67.2 mg/dL (0.1-20.0) H 09/15/18 00:30 54 mmol/L 09/15/18 00:30 Assessment and Plan 1. Acute kidney injury: Likley mild vasomotor / hemodynamic SEBASTIEN superimposed on CKD in the setting of volume depletion. UA is bland. Continue IV fluids. Monitor renal function. Renal function is slightly better. Avoid nephrotoxic agents. Meds dosage based on GFR. 2. FEN: Monitor lytes. 3. Generalized weakness: Improving. 4. Elevated troponin: Followed by Cards. 5. Cardiomyopathy with EF 35-40%. 6. Severe Pulmonary Hypertension. 7. Hypertension: BP controlled. 8. Anemia: POA.
[2018-09-16] MEDS: HEPARIN/ 0.45% NACL-25,000 UNIT/500 ML 25,000 UNIT/500 ML BAG IV SCH (21:32)
[2018-09-17 07:13] LABS: Hematocrit 28.4 % (30.3-42.9); Hemoglobin 9.3 gm/dl (10.1-14.3)
[2018-09-17 07:30] LABS: Calcium 9.4 mg/dL (8.4-10.2)
[2018-09-17] MEDS: HEPARIN/ 0.45% NACL-25,000 UNIT/500 ML 25,000 UNIT/500 ML BAG IV SCH (07:38)
[2018-09-17] MEDS: HALFPRIN EC PO SCH (09:58)
[2018-09-17] MEDS: SODIUM BICARBONATE PO SCH ×2 (09:58→09:59)
[2018-09-17] MEDS: CLARITIN PO SCH (09:58)
[2018-09-17] MEDS: BETAPACE PO SCH (09:58)
[2018-09-17] MEDS: IMDUR PO SCH (09:58)
[2018-09-17] MEDS: APRESOLINE PO SCH (09:58)
[2018-09-17] MEDS: COREG PO SCH (09:59)
[2018-09-17] MEDS: SODIUM CHLORIDE FLUSH SYRINGE 10 ML IV SCH (10:00)
--- NOTE | 2018-09-17 11:13 | Progress Note ---
Assessment and Plan 1. Acute kidney injury: Moira mild vasomotor / hemodynamic SEBASTIEN superimposed on CKD in the setting of volume depletion. UA is bland. Restart IV fluids. Monitor renal function. Renal function is stable. Avoid nephrotoxic agents. Meds dosage based on GFR. 2. FEN: Monitor lytes. 3. Generalized weakness: Improved. 4. Elevated troponin: Followed by Cards. 5. Cardiomyopathy with EF 35-40%. 6. Severe Pulmonary Hypertension. 7. Hypertension: BP controlled. 8. Anemia: POA. Subjective Date of service: 09/17/18 Interval history: Patient was seen and examined at the bedside. Doing ok. Objective - Vital Signs Vital signs: Vital Signs - 12hr 09/17/18 09/17/18 03:52 07:55 Temperature 98.4 F 98.6 F Pulse Rate 75 73 Respiratory 19 18 Rate Blood Pressure 128/65 145/73 O2 Sat by Pulse 98 98 Oximetry - General Appearance General appearance: well-developed, well-nourished, appears stated age, other (no distress) EENT: ATNC, PERRL, mucous membranes moist, hearing intact, vision intact Neck: supple Respiratory: Present: Clear to Ascultation Cardiology: regular, S1S2, no murmurs Gastrointestinal: normoactive bowel sounds, no tenderness, no distended Integumentary: no rash, warm and dry Neurologic: no focal deficit, no asterixis, alert and oriented x3 Musculoskeletal: other (no edema) Psychiatric: cooperative - Lab 09/17/18 06:12 09/17/18 06:12 Most recent lab results Calcium 9.4 mg/dL (8.4-10.2) 09/17/18 06:12 Magnesium 2.20 mg/dL (1.7-2.3) 09/15/18 19:56 67.2 mg/dL (0.1-20.0) H 09/15/18 00:30 54 mmol/L 09/15/18 00:30 Medications & Allergies - Medications Allergies/Adverse Reactions: Allergies Bswqcmf-Xkb-Mei Reductase Inhibitor Allergy (Verified 09/15/18 13:18) Unknown evolocumab [From [employer] Pushtronex] Adverse Reaction (Verified 09/15/18 13:18) BAD BACK PAIN Home Medications: Home Medications Medication Instructions Recorded Confirmed Last Taken Type Aspirin [Adult Aspirin Regimen] 81 mg PO DAILY 04/12/18 09/15/18 08/29/18 History Benazepril HCl 40 mg PO DAILY 04/12/18 09/15/18 08/29/18 History Carvedilol [Coreg] 6.25 mg PO BID 04/12/18 09/15/18 08/29/18 19:00 History Levocetirizine Dihydrochloride 5 mg PO DAILY 04/12/18 09/15/18 08/29/18 History Omeprazole 40 mg PO DAILY PRN 04/12/18 09/15/18 08/29/18 History Sotalol [Betapace] 40 mg PO BID 04/12/18 09/15/18 08/29/18 19:00 History Fluticasone [Flonase] 1 spray NS QDAY 07/11/18 09/15/18 08/29/18 History Furosemide [Lasix TAB] 20 mg PO Q48H 07/11/18 09/15/18 08/29/18 History Sodium Bicarbonate 2 tab PO BID 07/11/18 09/15/18 08/29/18 History ISOSORBIDE MONOnitrate [Imdur ER] 30 mg PO DAILY 08/23/18 09/15/18 08/29/18 History hydrALAZINE [Apresoline TAB] 25 mg PO BID 08/23/18 09/15/18 08/29/18 History Active Medications: Generic Name Dose Route Start Last Admin Trade Name Freq PRN Reason Stop Dose Admin Acetaminophen 650 mg 09/15/18 19:21 Tylenol PO Q4H PRN Pain MILD(1-3)/Fever >100.5/HOU Acetaminophen/Hydrocodone Bitart 1 each 09/15/18 19:25 09/15/18 20:45 [place] 5/325 PO 1 each Q6HR PRN Administration Pain Albuterol 2.5 mg 09/15/18 19:21 Proventil IH Q4HRT PRN Shortness Of Breath Aspirin 81 mg 09/16/18 10:00 09/17/18 09:58 Halfprin Ec PO 81 mg DAILY RENE Administration Carvedilol 6.25 mg 09/15/18 22:00 09/17/18 09:59 Coreg PO 6.25 mg BID RENE Administration Ergocalciferol 50,000 unit 09/22/18 10:00 Vitamin D2 PO Fr RENE Hydralazine HCl 25 mg 09/15/18 22:00 09/17/18 09:58 Apresoline PO 25 mg BID RENE Administration Sodium Chloride 1,000 mls @ 42 mls/hr 09/15/18 20:00 Nacl 0.45% 1000 Ml IV DIRECT RENE Heparin Sodium/Sodium Chloride 25,000 unit in 500 mls @ 20 mls/hr 09/15/18 20:00 09/17/18 07:38 Heparin/ 0.45% Nacl-25,000 Unit/500 Ml IV 950 units/hr TITRATE RENE 19 mls/hr Administration Protocol 1,000 UNITS/HR Isosorbide Mononitrate 30 mg 09/16/18 10:00 09/17/18 09:58 Imdur PO 30 mg DAILY RENE Administration Loratadine 10 mg 09/16/18 10:00 09/17/18 09:58 Claritin PO 10 mg DAILY RENE Administration Ondansetron HCl 4 mg 09/15/18 19:21 Zofran IV Q8H PRN Nausea And Vomiting Pantoprazole Sodium 40 mg 09/16/18 10:00 Protonix PO DAILY PRN Indigestion Sodium Bicarbonate 1,300 mg 09/15/18 22:00 09/17/18 09:59 Sodium Bicarbonate PO 1,300 mg BID RENE Administration Sodium Chloride 10 ml 09/15/18 22:00 09/17/18 10:00 Sodium Chloride Flush Syringe 10 Ml IV 10 ml BID RENE Administration Sodium Chloride 10 ml 09/15/18 19:21 Sodium Chloride Flush Syringe 10 Ml IV PRN PRN LINE FLUSH Sodium Chloride 10 ml 09/15/18 19:27 Sodium Chloride Flush Syringe 10 Ml IV 09/18/18 19:26 PRN PRN LINE FLUSH Sotalol HCl 40 mg 09/15/18 22:00 09/17/18 09:58 Betapace PO 40 mg BID RENE Administration
--- NOTE | 2018-09-17 11:36 | Progress Note ---
Assessment and Plan 68-year-old female [facility] who was admitted with generalized weakness after recent mastectomy in August 30 and noted to have elevated cardiac troponins No chest pain/no anginal equivalent No EKG changes Likely nonspecific in setting CKD Monitor on Tele Continue ASA/allergy to statin/on Zetia Okay to discontinue heparin gtt Echo: no significant change from previous echo Echocardiogram 04/25: EF 35-40, grade 3 diastolic dysfunction, [id number] aortic regurgitation, moderate to severe mitral regurgitation, [id number] tricuspid regurgitation, severe pulmonary hypertension Myocardial perfusion scan 05/23: 1. There is severely reduced perfusion fixed defect large size in the mid anteroapical wall and inferoapical wall. No ischemia detected. EF 36% CAD/stent/PA 2013 ICM EF 35-40% HFrEF mod-sev MR Severe Pulmonary Hypertension hypertension GERD chronic kidney disease breast cancer Subjective Date of service: 09/17/18 Principal diagnosis: fatigue Interval history: Patient In the bed and reports that she feels much better today. She denies any chest pain, shortness of breath, or edema. Objective Vital Signs Temp Pulse Resp BP Pulse Ox 09/17/18 07:55 98.6 F 73 18 145/73 98 09/17/18 03:52 98.4 F 75 19 128/65 98 09/16/18 23:01 98.4 F 74 20 131/61 100 09/16/18 21:06 63 09/16/18 19:55 99 09/16/18 19:18 98.4 F 63 18 135/72 99 09/16/18 17:04 98.0 F 84 18 104/56 99 09/16/18 12:07 98.4 F 74 18 127/63 100 - Physical Examination HEENT: Positive: PERRL Neck: Positive: neck supple, trachea midline Cardiac: Positive: Reg Rate and Rhythm, Systolic Murmur Lungs: Positive: clear to auscultation, Normal Breath Sounds Neuro: Positive: Grossly Intact Abdomen: Positive: Unremarkable, Soft, Active Bowel Sounds Skin: Negative: Rash Extremities: Present: warm. Absent: edema - Labs and Meds CBC 09/17/18 Range/Units 06:12 Hgb 9.3 L (10.1-14.3) gm/dl Hct 28.4 L (30.3-42.9) % Plt Count 275 (140-440) K/mm3 Comprehensive Metabolic Panel 09/17/18 Range/Units 06:12 Sodium 144 (137-145) mmol/L Potassium 4.6 (3.6-5.0) mmol/L Chloride 110.7 H (98-107) mmol/L Carbon Dioxide 20 L (22-30) mmol/L BUN 28 H (7-17) mg/dL Creatinine 1.7 H (0.7-1.2) mg/dL Glucose 99 (65-100) mg/dL Calcium 9.4 (8.4-10.2) mg/dL - Imaging and Cardiology EKG: report reviewed Echo: report reviewed (ECHO 04/25: EF 35-40%, mild AR, mod MAC, mod-sev MR, mod- sev TR)
--- NOTE | 2018-09-17 11:37 | Discharge Summary ---
Providers - Providers Date of Admission: 09/15/18 19:21 Date of discharge: 09/17/18 Attending physician: ZCAK GLOVER 09/15/18 Consult to Cardiac Rehabilitation [CONS] Routine Reason For Exam: Phase I 09/15/18 19:27 Consult to Cardiology [CONS] Routine Consulting Provider: CLAUDY CARLISLE Reason For Exam: chf/nstemi 09/15/18 20:08 Consult to Physician [CONS] Routine Comment: Consulting Provider: XAVI GILBERT Physician Instructions: Reason For Exam: Breast cancer 09/15/18 20:10 Consult to Physician [CONS] Routine Comment: Consulting Provider: ELIE ZUNIGA Physician Instructions: Reason For Exam: ARF Primary care physician: DALTON SALDAÑA Hospitalization Reason for admission: weakness and hypotension Condition: Critical Hospital course: This is a 68-year-old female with a past medical history of hypertension, CAD/stent/ME, chronic kidney disease, GERD and breast cancer status post left breast mastectomy/reconstruction with tissue cellars supervisor placement presents to [facility] emergency department complaining of weakness. Of note the patient had a recent left mastectomy on August 30. She presents complaining of generalized weakness and also some hypotension. In the emergency department the patient was afebrile with mild anemia. The patient had elevated cardiac troponins of 0.265 which are gradually trending down. An EKG revealed sinus rhythm with no acute ST segment changes and is unchanged from her EKG on 08/18/2018. Patient was admitted with diagnosis of elevated troponin, SEBASTIEN on CKD, generalized weakness and hypotension. The patient was seen by cardiology and nephrology in consultation. Patient was initially started on a heparin drip for a presumed NSTEMI because of the elevated troponin. However, cardiology felt that the elevated troponin was likely nonspecific in the setting of CKD. Nephrology felt that the acute kidney injury secondary to vasomotor nephropathy and improved with IV fluid hydration. Patient returned back to her baseline and was felt to have received maximal hospital benefit for discharge. Dedicated discharge time 35 minutes. Disposition: DC-01 TO HOME OR SELFCARE Time spent for discharge: 35 - Discharge Diagnoses (1) ARF (acute renal failure) with tubular necrosis Status: Acute (2) Breast cancer Status: Acute Qualifiers: Laterality: unspecified laterality (3) CKD (chronic kidney disease) Status: Acute Qualifiers: Chronic kidney disease stage: unspecified stage Qualified Code(s): N18.9 - Chronic kidney disease, unspecified (4) DVT prophylaxis Status: Acute (5) Dehydration Status: Acute (6) Elevated troponin I level Status: Acute (7) HLD (hyperlipidemia) Status: Acute Qualifiers: Hyperlipidemia type: mixed hyperlipidemia Qualified Code(s): E78.2 - Mixed hyperlipidemia (8) Hypotension Status: Acute Qualifiers: Hypotension type: unspecified hypotension type Qualified Code(s): I95.9 - Hypotension, unspecified (9) Renal insufficiency Status: Acute (10) Weakness Status: Acute Core Measure Documentation - Palliative Care Palliative Care/ Comfort Measures: Not Applicable - Core Measures Any of the following diagnoses?: none Exam - Constitutional Vitals: Temp Pulse Resp BP Pulse Ox 98.6 F 73 18 145/73 98 09/17/18 07:55 09/17/18 07:55 09/17/18 07:55 09/17/18 07:55 09/17/18 07:55 General appearance: Present: no acute distress, well-nourished - EENT Eyes: Present: PERRL ENT: hearing intact, clear oral mucosa - Neck Neck: Present: supple, normal ROM - Respiratory Respiratory effort: normal Respiratory: bilateral: CTA - Cardiovascular Heart Sounds: Present: S1 & S2. Absent: rub, click - Extremities Extremities: pulses symmetrical, No edema Peripheral Pulses: within normal limits - Abdominal General gastrointestinal: Present: soft, non-tender, non-distended, normal bowel sounds Female genitourinary: Present: normal - Integumentary Integumentary: Present: clear, warm, dry - Musculoskeletal Musculoskeletal: gait normal, strength equal bilaterally - Psychiatric Psychiatric: appropriate mood/affect, intact judgment & insight - Neurologic Neurologic: CNII-XII intact, moves all extremities Plan Activity: advance as tolerated Weight Bearing Status: Weight Bear as Tolerated Diet: low fat, low cholesterol, low salt Follow up with: DALTON SALDAÑA MD [Primary Care Provider] - 7 Days ELIE ZUNIGA MD [Staff Physician] - 7 Days LETICIA BERGER MD [Staff Physician] - 7 Days
[2018-09-17 11:44] VITALS: BP 116/59
[2018-09-22] MEDS ORDERED: VITAMIN D2 PO SCH (10:00)
== END 2018-09-17 17:26 | disposition home or self-care (01) | DRG 682 ==
LOC: ED 12:46 → 4A 19:21
PROVIDERS: ADMIT Internal Medicine; ATTEND Hospitalist
DX: N17.0 Acute kidney failure with tubular necrosis (principal); I50.23 Acute on chronic systolic (congestive) heart failure; I13.0 Hypertensive heart and chronic kidney disease with heart failure and stage 1 through stage 4 chronic kidney disease, or unspecified chronic kidney disease; N18.4 Chronic kidney disease, stage 4 (severe); I25.5 Ischemic cardiomyopathy; I34.0 Nonrheumatic mitral (valve) insufficiency; E86.0 Dehydration; I27.20 Pulmonary hypertension, unspecified; D64.9 Anemia, unspecified; E78.2 Mixed hyperlipidemia; K21.9 Gastro-esophageal reflux disease without esophagitis; I25.2 Old myocardial infarction; Z95.5 Presence of coronary angioplasty implant and graft; Z85.3 Personal history of malignant neoplasm of breast; Z83.3 Family history of diabetes mellitus; Z82.49 Family history of ischemic heart disease and other diseases of the circulatory system; Z88.8 Allergy status to other drugs, medicaments and biological substances; Z79.82 Long term (current) use of aspirin; Z79.899 Other long term (current) drug therapy; Z90.12 Acquired absence of left breast and nipple
CPT/HCPCS: 36415; 80048; 80053; 80061; 81001; 82550; 82553; 82570; 83735; 84300; 84439; 84443; 84484; 85014; 85018; 85025; 85049; 85520; 85610; 85730; 93005; 93010; 93306; G0378; J1644; J7030; J7040

== ENCOUNTER 2018-09-28 10:19 | Emergency (ER) | payer MEDICARE ==
[2018-09-28 11:40] LABS: Basophils % (Auto) 1.1 % (0.0-1.8); Eosinophils # (Auto) 0.4 K/mm3 (0.0-0.4); Eosinophils % (Auto) 8.2 % (0.0-4.3); Hematocrit 32.4 % (30.3-42.9); Hemoglobin 10.5 gm/dl (10.1-14.3); Lymphocytes # (Auto) 0.9 K/mm3 (1.2-5.4); Lymphocytes % (Auto) 20.4 % (13.4-35.0); Mean Corpuscular HGB Conc 33 % (30-34); Mean Corpuscular Volume 96 fl (79-97); Monocytes # (Auto) 0.5 K/mm3 (0.0-0.8); Monocytes % (Auto) 11.1 % (0.0-7.3); Platelet Count 265 K/mm3 (140-440); Red Blood Count 3.38 M/mm3 (3.65-5.03); Red Cell Distribution Width 17.1 % (13.2-15.2)
[2018-09-28 11:52] LABS: INR 1.01 (0.87-1.13)
[2018-09-28 11:53] LABS: Partial Thromboplastin Time 25.5 Sec. (24.2-36.6)
[2018-09-28 12:30] LABS: Calcium 9.6 mg/dL (8.4-10.2)
--- NOTE | 2018-09-28 12:33 | Emergency Department Report ---
ED Syncope HPI - General Chief Complaint: Syncope Stated Complaint: PASSED OUT Time Seen by Provider: 09/28/18 11:46 - History of Present Illness Initial Comments: This is a 68-year-old -[place]ian female was at her doctor's office, then had an episode of shakiness, losing consciousness, around 11 AM. Episode lasted a few seconds, and she was back to her baseline within 30 seconds. She felt fine after, but was advised to come to ED per her breast surgeon. She currently denies any chest pain, shortness of breath, palpitation, dizziness, fever, chills or night sweats. Patient states she had taken her medications with some tea this morning. Didn't really eat regular meal. She feels back to her baseline and wants to go home. Timing/Prior Episodes: single episode today, remote history Precipitating Factors: Positive: none Context: sitting Loss of Consciousness: dazed Current Symptoms: back to normal - Related Data Allergies/Adverse Reactions: Allergies Loeadaa-Uug-Ota Reductase Inhibitor Allergy (Verified 09/15/18 13:18) Unknown evolocumab [From [employer] Pusht[employer]] Adverse Reaction (Verified 09/15/18 13:18) BAD BACK PAIN Home Medications: Ambulatory Orders Aspirin [Adult Aspirin Regimen] 81 mg PO DAILY 04/12/18 Benazepril HCl 40 mg PO DAILY 04/12/18 Carvedilol [Coreg] 6.25 mg PO BID 04/12/18 Levocetirizine Dihydrochloride 5 mg PO DAILY 04/12/18 Omeprazole 40 mg PO DAILY PRN 04/12/18 Sotalol [Betapace] 40 mg PO BID 04/12/18 Fluticasone [Flonase] 1 spray NS QDAY 07/11/18 Furosemide [Lasix TAB] 20 mg PO Q48H 07/11/18 Sodium Bicarbonate 2 tab PO BID 07/11/18 ISOSORBIDE MONOnitrate [Imdur ER] 30 mg PO DAILY 08/23/18 hydrALAZINE [Apresoline TAB] 25 mg PO BID 08/23/18 ED Review of Systems ROS: Stated complaint: PASSED OUT Other details as noted in HPI Comment: All other systems reviewed and negative Eyes: denies: eye pain ENT: denies: ear pain Respiratory: denies: cough Cardiovascular: denies: chest pain Endocrine: denies: flushing Gastrointestinal: denies: nausea, vomiting Neurological: other (syncope) ED Past Medical Hx - Past Medical History Hx Hypertension: Yes (did not take antihypertensives today) Hx Heart Attack/AMI: Yes (2013; ischemic cardiomyopathy EF 35%) Hx GERD: Yes Hx Liver Disease: No Hx Renal Disease: Yes (CKD stage 4) Hx Seizures: No Hx Asthma: No Hx HIV: No - Surgical History Hx Coronary Stent: Yes ((2)) Hx Pacemaker: No Hx Breast Surgery: Yes (L BREAST BS X2 (; ), mastectomy 2018) - Social History Smoking Status: Never Smoker Substance Use Type: None - Medications Home Medications: Home Medications Medication Instructions Recorded Confirmed Last Taken Type Aspirin [Adult Aspirin Regimen] 81 mg PO DAILY 04/12/18 09/15/18 08/29/18 History Benazepril HCl 40 mg PO DAILY 04/12/18 09/15/18 08/29/18 History Carvedilol [Coreg] 6.25 mg PO BID 04/12/18 09/15/18 08/29/18 19:00 History Levocetirizine Dihydrochloride 5 mg PO DAILY 04/12/18 09/15/18 08/29/18 History Omeprazole 40 mg PO DAILY PRN 04/12/18 09/15/18 08/29/18 History Sotalol [Betapace] 40 mg PO BID 04/12/18 09/15/18 08/29/18 19:00 History Fluticasone [Flonase] 1 spray NS QDAY 07/11/18 09/15/18 08/29/18 History Furosemide [Lasix TAB] 20 mg PO Q48H 07/11/18 09/15/18 08/29/18 History Sodium Bicarbonate 2 tab PO BID 07/11/18 09/15/18 08/29/18 History ISOSORBIDE MONOnitrate [Imdur ER] 30 mg PO DAILY 08/23/18 09/15/18 08/29/18 History hydrALAZINE [Apresoline TAB] 25 mg PO BID 08/23/18 09/15/18 08/29/18 History ED Physical Exam - General Limitations: No Limitations General appearance: alert, in no apparent distress - Head Head exam: Present: atraumatic, normocephalic - Eye Eye exam: Present: normal appearance, PERRL, EOMI - ENT ENT exam: Present: normal exam, normal orophraynx - Neck Neck exam: Present: normal inspection - Respiratory Respiratory exam: Present: normal lung sounds bilaterally - Cardiovascular Cardiovascular Exam: Present: regular rate, normal rhythm - GI/Abdominal GI/Abdominal exam: Present: soft, normal bowel sounds - Extremities Exam Extremities exam: Present: normal inspection, full ROM - Neurological Exam Neurological exam: Present: alert, oriented X3 ED Course Vital Signs 09/28/18 10:40 Temperature 97.6 F Pulse Rate 63 Respiratory 16 Rate Blood Pressure 126/65 O2 Sat by Pulse 100 Oximetry ED Medical Decision Making - Lab Data Result diagrams: 09/28/18 11:17 09/28/18 11:17 - EKG Data -: EKG Interpreted by Me - EKG Data When compared to previous EKG there are: no significant change Interpretation: no acute changes Critical care attestation.: If time is entered above; I have spent that time in minutes in the direct care of this critically ill patient, excluding procedure time. ED Disposition Clinical Impression: Dehydration, CKD (chronic kidney disease) Syncope Qualifiers: Syncope type: unspecified Qualified Code(s): R55 - Syncope and collapse Disposition: DC-01 TO HOME OR SELFCARE Is pt being admited?: No Does the pt Need Aspirin: No Condition: Stable Instructions: Chronic Kidney Disease (ED), Syncope (ED), Low Sodium Diet (ED), Impaired Kidney Function (ED) Referrals: RJ HUBBARD MD [Primary Care Provider] - 3-5 Days
[2018-09-28 13:24] VITALS: BP 126/64
== END 2018-09-28 13:24 | disposition home or self-care (01) ==
LOC: ED 10:19
DX: E86.0 Dehydration (principal); R55 Syncope and collapse; I12.9 Hypertensive chronic kidney disease with stage 1 through stage 4 chronic kidney disease, or unspecified chronic kidney disease; N18.4 Chronic kidney disease, stage 4 (severe); K21.9 Gastro-esophageal reflux disease without esophagitis
CPT/HCPCS: 36415; 80053; 85025; 85610; 85730; 93005; 93010

== ENCOUNTER 2018-11-20 11:09 | Outpatient (CLI) | payer MEDICARE ==
--- NOTE | 2018-11-20 15:51 | Mammography Report ---
BONE DEXA CLINICAL: Postmenopausal and history of left breast cancer. TECHNIQUE: 2 site bone DEXA performed on an Hologic scanner. FINDINGS: The average BMD of the lumbar spine L1-L4 is 1.090g/cm squared with a T score of -0.5 and a Z score o f +1.8. The average total BMD of the left hip is 0.881 g/cm squared with a T score of -1.0and a Z score of +0 .2. IMPRESSION: 1. WHO classification: Normal with average fracture risk based on spine measurements. 2. WHO classification Osteopenia with increased fracture risk based on left hip measurements. RECOMMENDATION: Clinical correlation and routine screening. Definitions: BMD equal bone mineral density T score = BMD related to peak bone mass of young adult (Josefa expressed an standard deviation) Z score = age-matched BMD expressed in SD World health organization (WHO) diagnostic criteria Normal T score greater than equal to 1 standard deviation Osteopenia T score between -1 and -2.4 standard deviation Osteoporosis T score -2.5 standard deviation or below. Note: BMD is not the only risk factor for fracture; also consider factors such as the patient's age, risk of falling, previous osteoporotic fracture, family history of osteoporotic fractures, current sm oker and low body weight. Z scores are not calculated if greater than 80 years of age. Signer Name: Avi Albert MD Signed: 11/20/2018 3:46 PM Workstation Name: [id number]
== END 2018-11-20 11:10 | disposition home or self-care (01) ==
LOC: SPVWC 11:09
PROVIDERS: ATTEND Internal Medicine Hematology & Oncology
DX: M85.88 Other specified disorders of bone density and structure, other site (principal); M81.0 Age-related osteoporosis without current pathological fracture; E78.00 Pure hypercholesterolemia, unspecified; K21.9 Gastro-esophageal reflux disease without esophagitis; I10 Essential (primary) hypertension; Z78.0 Asymptomatic menopausal state
CPT/HCPCS: 77080